=== PATIENT | male | born 1945 | race Caucasian/White ===

== ENCOUNTER 2017-09-28 05:12 | Observation (INO) | payer OTHER ==
[2017-09-28 05:42] LABS: Absolute Lymphocytes (CBC) 0.8 K/uL (0.7-4.9); Absolute Monocytes 0.2 K/uL (0.1-1.3); Absolute Neutrophil 7.2 K/uL (1.8-8.0); Basophils % 0.4 % (0-1.3); Eosinophils % 0.2 % (0-4.4); Hematocrit 47.4 % (39.6-49.0); MCH 30.5 pg (27.0-35.0); MCV 91.4 fL (80-100); MPV 9.4 fL (7.6-11.3); Monocytes % 2.4 % (3.3-12.3); RBC Red Blood Cell Count 5.19 M/uL (4.33-5.43)
[2017-09-28 05:55] LABS: Potassium 3.7 mEq/L (3.6-5.0); Protime INR 0.96
[2017-09-28 06:01] LABS: Albumin 4.5 g/dL (3.2-5.5); Bilirubin Direct 0.2 mg/dL (0-0.2); Magnesium 1.7 mg/dL (1.8-2.5); Protein, Total 8.3 g/dL (6.0-8.3)
[2017-09-28 06:04] LABS: CKMB Creatine Kinase MB 1.4 ng/ml (0.3-4.0)
[2017-09-28] MEDS ORDERED: PROMETHAZINE 25 MG/ML VIAL ONE (06:19)
--- NOTE | 2017-09-28 07:06 | ER ---
Nurse's Notes [facility] Name: Nghia Montague Age: 72 yrs Sex: Male : 1945 Arrival Date: 09/28/2017 Time: 05:13 Bed 7 Private MD: Diagnosis: Chest pain, unspecified Presentation: 09/28 05:13 Presenting complaint: EMS states: HE CALLED US FOR SHORTNESS OF BREATH AFTER HE GOT bp INTO IT WITH HIS FAMILY. Transition of care: patient was not received from another setting of care. Onset of symptoms is unknown. Risk Assessment: Do you want to hurt yourself or someone else? Patient reports no desire to harm self or others. Initial Sepsis Screen: Does the patient meet any 2 criteria? No. Patient's initial sepsis screen is negative. Does the patient have a suspected source of infection? No. Patient's initial sepsis screen is negative. Care prior to arrival: Oxygen administered. via nasal cannula. 05:13 Method Of Arrival: EMS: [facility] bp 05:13 Acuity: TEZ 3 bp 05:17 Note PT AGGRESSIVE WITH EMS IN ROUTE, REFUSING PIV, TEMPERATURE AND OTHER INTERVENTIONS.bp Triage Assessment: 05:15 General: Appears in no apparent distress. comfortable, Behavior is uncooperative. Pain: bp Denies pain. Respiratory: Reports shortness of breath Onset: The symptoms/episode began/occurred at an unknown time. the patient has mild shortness of breath. Historical: - Allergies: 05:15 No Known Allergies; bp - Home Meds: 05:15 None [Active]; bp - PMHx: 05:15 Myocardial infarction; bp - Immunization history:: Adult Immunizations up to date. - Social history:: Smoking status: Patient uses tobacco products, unknown amount. - Ebola Screening: : Patient negative for fever greater than or equal to 101.5 degrees Fahrenheit, and additional compatible Ebola Virus Disease symptoms Patient denies exposure to infectious person Patient denies travel to an Ebola-affected area in the 21 days before illness onset No symptoms or risks identified at this time. Screenin:18 Abuse screen: Denies threats or abuse. Denies injuries from another. Nutritional bp screening: No deficits noted. Tuberculosis screening: No symptoms or risk factors identified. Fall Risk None identified. Assessment: 05:45 Reassessment: received patient from EMS. restless and constantly complaining of cold. rv temp is 98.7. awake and conscious.. General: Appears distressed, uncomfortable, slender, Behavior is cooperative, fussy, restless. Pain: Denies pain. Neuro: Level of Consciousness is awake, alert, obeys commands, Oriented to person, place, time, situation. Cardiovascular: Capillary refill < 3 seconds. Cardiovascular: Rhythm is regular. Respiratory: Airway is patent Respiratory effort is even, Breath sounds are clear. GI: No signs and/or symptoms were reported involving the gastrointestinal system. : No signs and/or symptoms were reported regarding the genitourinary system. EENT: No signs and/or symptoms were reported regarding the EENT system. Derm: Skin is intact. Musculoskeletal: Reports. 05:54 Reassessment: one of the hearing aids feel off and gave it to the patient's son rv (Parminder) together with the patient's [place] ID.. 06:22 Reassessment: patient vomited with bile look-like content. . rv 07:30 Reassessment: Patient appears in no apparent distress at this time. Patient and/or ph family updated on plan of care and expected duration. Pain level reassessed. Patient is alert, oriented x 3, equal unlabored respirations, skin warm/dry/pink. Pt resting quietly awaiting room assignment. 09:00 Reassessment: Patient appears in no apparent distress at this time. Patient and/or ph family updated on plan of care and expected duration. Pain level reassessed. Patient is alert, oriented x 3, equal unlabored respirations, skin warm/dry/pink. Pt taken to restroom via wheelchair, urine sample obtained. 10:13 Reassessment: Patient appears in no apparent distress at this time. Patient and/or ph family updated on plan of care and expected duration. Pain level reassessed. Patient is alert, oriented x 3, equal unlabored respirations, skin warm/dry/pink. Attempted to call report, receiving nurse unavailable, told that she will call back. Vital Signs: 05:15 BP 176 / 81; Resp 20; Temp 97.8; Weight 77.11 kg; bp 06:12 BP 161 / 78; Pulse 69; Resp 19; Pulse Ox 100% on 2 lpm NC; rv 06:27 BP 150 / 72; Pulse 63; Resp 10; Pulse Ox 100% on 2 lpm NC; rv 07:30 BP 148 / 58; Pulse 67; Resp 14; Pulse Ox 99% on 2 lpm NC; hb 08:15 BP 132 / 60; Pulse 69; Resp 17; Pulse Ox 99% on R/A; hb 09:00 BP 144 / 63; Pulse 69; Resp 18; Pulse Ox 99% on R/A; hb 10:00 BP 158 / 62; Pulse 68; Resp 18; Pulse Ox 99% on R/A; hb ED Course: 05:13 Patient arrived in ED. bp 05:15 Triage completed. bp 05:17 Vernon Ruiz MD is Attending Physician. tw4 05:17 Arm band placed on. bp 05:18 Patient has correct armband on for positive identification. Bed in low position. Call bp light in reach. Side rails up X2. 05:42 X-ray completed. Portable x-ray completed in exam room. Patient tolerated procedure mh1 well. 05:43 XRAY Chest (1 view) In Process Unspecified. EDMS 05:49 Inserted saline lock: 20 gauge in right antecubital area, using aseptic technique. rv 07:06 Greer Duarte MD is Hospitalizing Provider. tw4 08:05 Urine collected: clean catch specimen, clear. 3 Administered Medications: 06:21 Drug: Phenergan 6.25 mg Route: IVP; Site: right antecubital; rv 06:57 Follow up: Response: No adverse reaction; Nausea is decreased rv Point of Care Testing: Blood Glucose: 05:47 Blood Glucose: 169 mg/dL; rv Ranges: Outcome: 07:06 Decision to Hospitalize by Provider. tw4 11:15 Patient left the ED. hb Signatures: Dispatcher [employer] EDMS Kimmy Lindsey 1 Gricelda James RN RN Viji Benitez RN RN Deisy Reddy 3 Daren Sy RN RN bp Vernon Ruiz MD MD tw4 Joni Ricci RN RN rv
--- NOTE | 2017-09-28 07:06 | EDPHYS ---
Physician Documentation [facility] Name: Nghia Montague Age: 72 yrs Sex: Male : 1945 Arrival Date: 09/28/2017 Time: 05:13 Bed 7 Private MD: ED Physician Vernon Ruiz HPI: 09/28 07:02 This 72 yrs old Male presents to ER via EMS with complaints of Shortness Of tw4 Breath. 07:02 The patient has shortness of breath at rest. Onset: The symptoms/episode began/occurred tw4 today. Duration: The symptoms are continuous, and are unchanged since they started. The patient's shortness of breath has no apparent modifying factors. Associated signs and symptoms: The patient has no apparent associated signs or symptoms. Severity of symptoms: At their worst the symptoms were mild in the emergency department the symptoms are unchanged. The patient has not experienced similar symptoms in the past. Historical: - Allergies: 05:15 No Known Allergies; bp - Home Meds: 05:15 None [Active]; bp - PMHx: 05:15 Myocardial infarction; bp - Immunization history:: Adult Immunizations up to date. - Social history:: Smoking status: Patient uses tobacco products, unknown amount. - Ebola Screening: : Patient negative for fever greater than or equal to 101.5 degrees Fahrenheit, and additional compatible Ebola Virus Disease symptoms Patient denies exposure to infectious person Patient denies travel to an Ebola-affected area in the 21 days before illness onset No symptoms or risks identified at this time. ROS: 07:02 Constitutional: Negative for fever, chills, and weight loss. tw4 07:02 Abdomen/GI: Negative for abdominal pain, nausea, vomiting, diarrhea, and constipation, MS/Extremity: Negative for injury and deformity, Skin: Negative for injury, rash, and discoloration, Neuro: Negative for headache, weakness, numbness, tingling, and seizure. 07:02 Cardiovascular: Positive for chest pain, Negative for edema, orthopnea, palpitations. 07:02 Respiratory: Positive for shortness of breath, Negative for cough, dyspnea on exertion, hemoptysis, orthopnea, pleurisy. Exam: 07:02 Constitutional: This is a well developed, well nourished patient who is awake, alert, tw4 and in no acute distress. Head/Face: Normocephalic, atraumatic. Cardiovascular: Regular rate and rhythm with a normal S1 and S2. No gallops, murmurs, or rubs. Normal PMI, no JVD. No pulse deficits. Respiratory: Lungs have equal breath sounds bilaterally, clear to auscultation and percussion. No rales, rhonchi or wheezes noted. No increased work of breathing, no retractions or nasal flaring. Abdomen/GI: Soft, non-tender, with normal bowel sounds. No distension or tympany. No guarding or rebound. No evidence of tenderness throughout. Back: No spinal tenderness. No costovertebral tenderness. Full range of motion. MS/ Extremity: Pulses equal, no cyanosis. Neurovascular intact. Full, normal range of motion. Neuro: Awake and alert, GCS 15, oriented to person, place, time, and situation. Cranial nerves II-XII grossly intact. Motor strength 5/5 in all extremities. Sensory grossly intact. Cerebellar exam normal. Normal gait. Vital Signs: 05:15 BP 176 / 81; Resp 20; Temp 97.8; Weight 77.11 kg; bp 06:12 BP 161 / 78; Pulse 69; Resp 19; Pulse Ox 100% on 2 lpm NC; rv 06:27 BP 150 / 72; Pulse 63; Resp 10; Pulse Ox 100% on 2 lpm NC; rv 07:30 BP 148 / 58; Pulse 67; Resp 14; Pulse Ox 99% on 2 lpm NC; hb 08:15 BP 132 / 60; Pulse 69; Resp 17; Pulse Ox 99% on R/A; hb 09:00 BP 144 / 63; Pulse 69; Resp 18; Pulse Ox 99% on R/A; hb 10:00 BP 158 / 62; Pulse 68; Resp 18; Pulse Ox 99% on R/A; hb MDM: 05:17 Patient medically screened. tw4 07:02 Data reviewed: vital signs, nurses notes. Data interpreted: security monitor: rhythm is tw4 normal sinus rhythm, Pulse oximetry: Interpretation: normal. Test interpretation: by ED physician or midlevel provider: ECG. Counseling: I had a detailed discussion with the patient and/or guardian regarding: the historical points, exam findings, and any diagnostic results supporting the discharge/admit diagnosis, lab results, radiology results. Physician consultation:. Admission orders: after a detailed discussion of the patient's condition and case, the admit orders are written by me. 07:04 Differential diagnosis: CHF exacerbation, Chronic Obstructive Pulmonary Disease tw4 pulmonary edema, Pulmonary Embolism reactive airway disease. Physician consultation: Greer Duarte MD was contacted at 07:03, regarding patient's condition, need to come to ED to see patient, and will see patient in inpatient room. 09/28 05:25 Order name: Basic Metabolic Panel; Complete Time: 06:16 tw4 09/28 06:35 Interpretation: GLUC 179; GFR 73. tw4 09/28 05:25 Order name: BNP; Complete Time: 06:16 tw4 09/28 05:25 Order name: CBC with Diff tw4 09/28 06:36 Interpretation: Normal except: MCV 91.4; MN% 2.4; AXEL% 87.0; LYM% 10.0. tw4 09/28 05:25 Order name: Ckmb; Complete Time: 06:16 4 09/28 05:25 Order name: CPK; Complete Time: 06:16 tw4 09/28 05:25 Order name: LFT's; Complete Time: 06:16 tw4 09/28 06:36 Interpretation: Normal except: GLOB 3.8. tw4 09/28 05:25 Order name: Magnesium; Complete Time: 06:16 tw4 09/28 05:25 Order name: PT-INR; Complete Time: 06:16 4 09/28 05:25 Order name: Ptt, Activated; Complete Time: 06:16 4 09/28 05:25 Order name: Troponin (emerg Dept Use Only); Complete Time: 06:16 tw4 09/28 06:36 Interpretation: Abnormal: TROPED 0.04. tw4 09/28 05:44 Order name: CBC Smear Scan EDAK 09/28 08:18 Order name: Urine Dipstick--Ancillary (enter results) em1 09/28 08:41 Order name: Glucose, Ancillary Testing EDAK 09/28 08:48 Order name: Urine Dipstick-Ancillary EDAK 09/28 05:25 Order name: XRAY Chest (1 view) tw4 09/28 05:25 Order name: EKG; Complete Time: 05:26 tw4 09/28 05:25 Order name: Cardiac monitoring; Complete Time: 05:33 tw4 09/28 05:25 Order name: EKG - Nurse/Tech; Complete Time: 05:33 4 09/28 05:25 Order name: IV Saline Lock; Complete Time: 05:33 4 09/28 05:25 Order name: Labs collected and sent; Complete Time: 05:33 4 09/28 05:25 Order name: O2 Per Protocol; Complete Time: 05:33 4 09/28 05:25 Order name: O2 Sat Monitoring; Complete Time: 05:34 4 09/28 05:25 Order name: Urine Dipstick-Ancillary (obtain specimen); Complete Time: 08:15 tw4 Administered Medications: 06:21 Drug: Phenergan 6.25 mg Route: IVP; Site: right antecubital; rv 06:57 Follow up: Response: No adverse reaction; Nausea is decreased rv Point of Care Testing: Blood Glucose: 05:47 Blood Glucose: 169 mg/dL; rv Ranges: Critical Glucose Levels:Adult <50 mg/dl or >400 mg/dl <40 mg/dl or >180 mg/dl Disposition: 09/28/17 07:06 Hospitalization ordered by Greer Duarte for Observation. Preliminary diagnosis is Chest pain, unspecified. - Bed requested for Telemetry/MedSurg (observation). - Status is Observation. hb - Condition is Stable. - Problem is new. - Symptoms have improved. UTI on Admission? No Signatures: Dispatcher [employer] EDAnali Byrnes RN RN dw Daphney Padilla, LENS INSERTER-C LENS INSERTER-Csnw Viji Benitez RN RN Daren Sy RN Vernon Romo MD MD tw4 Joni Ricci RN RN rv Corrections: (The following items were deleted from the chart) 09:08 07:06 Hospitalization Ordered by Greer Duarte MD for Observation. Preliminary dw diagnosis is Chest pain, unspecified. Bed requested for Telemetry/MedSurg (observation). Status is Observation. Condition is Stable. Problem is new. Symptoms have improved. UTI on Admission? No. tw4 11:15 09:08 09/28/2017 07:06 Hospitalization Ordered by Greer Duarte MD for Observation. hb Preliminary diagnosis is Chest pain, unspecified. Bed requested for Telemetry/MedSurg (observation). Status is Observation. Condition is Stable. Problem is new. Symptoms have improved. UTI on Admission? No. dw
[2017-09-28 08:05] LABS: Blood Morphology Comment NOT SEEN (NOT SEEN); Platelet Estimate ADEQ; Urine White Blood Cell Casts OK
[2017-09-28 08:48] LABS: Urine Blood TRACE (NEG); Urine Glucose 1+ (NEG); Urine Protein 1+ (NEG); Urine Specific Gravity 1.015 (1.005-1.030); Urine pH 8.5 (5.0-7.0)
--- NOTE | 2017-09-28 10:28 | RAD REPORT ---
EXAM DESCRIPTION: Paulo Single View09/28/2017 5:44 am CLINICAL HISTORY: Cough COMPARISON: 2012 FINDINGS: The lungs appear clear of acute infiltrate. The heart is normal size IMPRESSION: No acute abnormalities displayed
[2017-09-28] MEDS ORDERED: ONDANSETRON 4 MG/2 ML VIAL IV PRN (11:30)
[2017-09-28] MEDS ORDERED: NA CHLORIDE 0.9% 500 ML IV ONE (11:36)
[2017-09-28] MEDS ORDERED: NA CHLORIDE 0.9% 500 ML ONE (11:39)
[2017-09-28] MEDS ORDERED: NA CHLORIDE 0.9% 1,000 ML IV SCH ×2 (12:00)
[2017-09-28 12:17] VITALS: BMI 28.1
[2017-09-28] MEDS: NA CHLORIDE 0.9% 1,000 ML IV SCH ×2 (12:29→22:00)
[2017-09-28] MEDS: METOPROLOL XL 25 MG TAB PO SCH (12:30)
[2017-09-28] MEDS ORDERED: POTASSIUM 25 MEQ EFFERV TAB PO ONE (13:00)
[2017-09-28] MEDS ORDERED: MAGNESIUM SULFATE 1 gm IVPB 1 GM/100 ML BAG IV ONE (13:00)
[2017-09-28] MEDS ORDERED: POTASSIUM PHOS IN 0.9 % NACL 15 MMOL/250 ML BAG IV ONE (13:45)
[2017-09-28] MEDS ORDERED: IPRATROPIUM BROM 0.5MG/2.5ML NEB SCH (14:00)
[2017-09-28] MEDS ORDERED: ALBUTEROL 2.5 MG/3 ML NEB SOL NEB SCH (14:00)
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
--- NOTE | 2017-09-28 15:50 | CON ---
History Of Present Illness: Mr. Montague for 3 days has been not eating or drinking, when he tried to eat or drink he throws up. He has diffuse body aches and pains. He reports feeling cold, shivering and having some sweating spells as well but does not complain of a cough or chest pain or dysuria. Sonu peterson seems to just feel bad in general all over, reluctant to be very specific about anything. He prese ntly takes no medications. He was a patient in the [facility] and he had a myocardial infarc tion and a stent in 1998. He was in our hospital in 2012 at which time, an echocardiogram and nuclea r stress test and CT angio of the chest were done. Those things all looked fine. He has not had any contact with me since 2012. He has not had any contact with his [place] doctors in more than a year. He denies tobacco use now, although he has an odor of tobacco smoke about him. Denies alcohol use at a ll for the last 2 years. Denies illegal drugs. Physical Examination: General: He is very ill-appearing. He appears disheveled. General hygiene: Oral hygiene are all very poor. Lungs: Did not reveal crackles or wheeze. Heart exam: Does not reveal any abnormality. Abdomen: Soft. Extremities: Reveal no edema. Distal pulses are palpable. Laboratory Data: His electrocardiogram is not available from today. We will have to see if we can g et it put into the computer system, so it could be interpreted, but at the present time, it is not av ailable. The troponin level of 0.04. Magnesium level was low. Blood sugars are high 179 to 169, cr eatinine 1, BUN is 6. He has a normal white blood cell count, normal hemoglobin, hematocrit, platele t count. There is a mild left shift with 87% neutrophils. There has been no screening for influenza . The urine analysis shows some abnormalities but not typically what we would find in urine infectio n. He has elevated ketones, a trace amount of blood and urine protein. Impression: The patient has an infection of some kind, it is not obvious looking in what the source is. It does not seem to be urinary or lungs. I think he does need hydration and needs to be kept n. p.o. and investigate the anorexia. We will get serial enzymes, but the one of 0.04 is not very impre ssive and would not necessarily prompt us to do a lot of cardiac testing. We will see what develops before we launch any further cardiac testing. This does not seem to be a case of non ST elevation OR or unstable angina. SCOTTIE/GLEN Voice ID: [id number] Report ID: [id number]
--- NOTE | 2017-09-28 18:56 | RAD REPORT ---
EXAM DESCRIPTION: CT - Abdomen Pelvis Wo Contrast - 09/28/2017 6:41 pm CLINICAL HISTORY: Abdominal pain with nausea and vomiting COMPARISON: 2012 TECHNIQUE: Computed axial tomography of the abdomen and pelvis was obtained. IV contrast was not giv en. Oral contrast was administered. All CT scans are performed using dose optimization technique as appropriate and may include automated exposure control or mA/KV adjustment according to patient size. FINDINGS: The evaluation of solid organs, vessels is limited secondary to the lack of contrast admi nistration. The liver, pancreas, adrenals and right kidney grossly normal. A 41 millimeter cystic splenic mass is without significant change. Small left renal cysts are suspect ed. Small calcification within a calyceal diverticulum is suspected. The appendix is normal. There is no evidence of diverticulitis. The prostate gland ismoderately enlarged. Small inguinal hernias contain fat A small hiatal hernia is present. 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 Is without obvious change from the prior exam although c omparison is limited as contrast was not administered. IMPRESSION: No acute abnormality is displayed.
[2017-09-28] MEDS ORDERED: ATORVASTATIN 20 MG TAB PO SCH (21:00)
[2017-09-29] MEDS: NA CHLORIDE 0.9% 1,000 ML IV SCH ×2 (00:42→10:20)
[2017-09-29 04:24] VITALS: O2SAT 97
[2017-09-29 04:43] LABS: Absolute Lymphocytes (CBC) 2.1 K/uL (0.7-4.9); Absolute Neutrophil 8.1 K/uL (1.8-8.0); Basophils % 0.5 % (0-1.3); Eosinophils % 0.6 % (0-4.4); Hematocrit 41.4 % (39.6-49.0); Lymphocytes % 18.3 % (15.3-44.8); MCH 30.2 pg (27.0-35.0); MCV 92.4 fL (80-100); MPV 9.2 fL (7.6-11.3); Monocytes % 8.5 % (3.3-12.3); RBC Red Blood Cell Count 4.49 M/uL (4.33-5.43)
[2017-09-29 05:31] LABS: Magnesium 1.9 mg/dL (1.8-2.5); Phosphorus 2.6 mg/dL (2.5-4.3); Potassium 3.7 mEq/L (3.6-5.0)
[2017-09-29] MEDS: METOPROLOL XL 25 MG TAB PO SCH (06:19)
[2017-09-29] MEDS ORDERED: POTASSIUM CL SA 10 MEQ TAB PO ONE (07:00)
--- NOTE | 2017-09-29 07:39 | EKG ---
Test Date: 2017-09-28 Test Time: 05:40:57 Hotel Maid: [place] MEASUREMENT RESULTS: Intervals: Rate: 70 WI: 170 QRSD: 76 QT: 402 QTc: 434 [place]: P: WI: 170 QRS: 163 T: 137 INTERPRETIVE STATEMENTS: Normal sinus rhythm Right axis deviation Low voltage QRS Septal infarct, age undetermined Abnormal ECG Compared to ECG 06/21/2012 16:20:18 Right-axis deviation now present Myocardial infarct finding still present Electronically Signed On 09-29-17 07:38:23 CDT by Jose Dunaway
[2017-09-29 08:32] VITALS: BP 141/67; TEMP 98.1
[2017-09-29] MEDS ORDERED: ASPIRIN EC 81 MG TAB PO SCH (09:00)
[2017-09-29] MEDS ORDERED: CALCIUM GLUC 10% INJ 4.65 MEQ in NA CHLORIDE 0.9% 100 ML IV ONE (11:02)
--- NOTE | 2017-09-29 12:43 | ECHO ---
HEIGHT: 5 ft 7 in WEIGHT: 180 lb 0 oz DATE OF STUDY: 09/29/[address]: Greer Duarte MD 2-DIMENSIONAL: YES M.MODE: YES DOPPLER: YES COLOR FLOW: YES TDS: NO PORTABLE: NO DEFINITY: NO BUBBLE STUDY: NO DIAGNOSIS: CONGESTIVE HEART FAILURE CARDIAC HISTORY: CATHERIZATION: NO SURGERY: NO PROSTHETIC VALVE: NO PACEMAKER: NO MEASUREMENTS (cm) DIASTOLIC (NORMALS) SYSTOLIC (NORMALS) IVSd 1.1 (0.6-1.2) LA Diam 4.0 (1.9-4.0) LVEF 65% LVIDd 4.3 (3.5-5.7) LVIDs 2.8 (2.0-3.5) %FS 35% LVPWd 1.0 (0.6-1.2) Ao Diam 2.7 (2.0-3.7) 2 DIMENSIONAL ASSESSMENT: RIGHT ATRIUM: NORMAL LEFT ATRIUM: NORMAL RIGHT VENTRICLE: NORMAL LEFT VENTRICLE: NORMAL TRICUSPID VALVE: NORMAL MITRAL VALVE: NORMAL PULMONIC VALVE: NORMAL AORTIC VALVE: NORMAL PERICARDIAL EFFUSION: NONE AORTIC ROOT: NORMAL LEFT VENTRICULAR WALL MOTION: MILD APICAL HYPOKINESIS. NO CHANGES SINCE 2012. DOPPLER/COLOR FLOW: MILD MITRAL AND TRICUSPID REGURGITATION. NORMAL RIGHT VENTRICULAR SYSTOLIC PRESSURE. COMMENTS: NORMAL LEFT VENTRICULAR EJECTION FRACTION WITH WALL MOTION ABNORMALITY, NO CHANGES SINCE 2012. MILD MITRAL AND TRICUSPID REGURGITATION. TECHNOLOGIST: Lisbet IZQUIERDO
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
== END 2017-09-29 15:18 | disposition home or self-care (01) ==
LOC: ER 05:12 → ERHOLD 07:07 → 4TH 11:05
PROVIDERS: ADMIT Family Medicine; ATTEND Family Medicine
DX: E86.0 Dehydration (principal); R11.2 Nausea with vomiting, unspecified; I10 Essential (primary) hypertension; E78.5 Hyperlipidemia, unspecified; K21.9 Gastro-esophageal reflux disease without esophagitis; I25.2 Old myocardial infarction; Z95.5 Presence of coronary angioplasty implant and graft; Z87.891 Personal history of nicotine dependence; Z91.14 Patient's other noncompliance with medication regimen
CPT/HCPCS: 36415; 71045; 74176; 80048 ×2; 80076; 81003; 82550; 82553; 82962; 83735 ×2; 83880; 84100 ×2; 84484 ×3; 85025 ×2; 85610; 85730; 87070; 87081; 87804 ×2; 93005; 93306; 96374; 99284; G0378 ×2; J0610; J2405; J2550; J3475; J7030 ×3

== ENCOUNTER 2021-04-03 21:28 | Inpatient (IN) | payer OTHER ==
[2021-04-03 22:24] LABS: Absolute Lymphocytes (CBC) 1.3 K/uL (0.7-4.9); Hematocrit 44.4 % (39.6-49.0); Lymphocytes % 20.6 % (15.3-44.8); MPV 9.2 fL (7.6-11.3); RBC Red Blood Cell Count 4.81 M/uL (4.33-5.43)
[2021-04-03 22:41] LABS: Albumin 3.6 g/dL (3.4-5.0); Bilirubin Direct 0.2 mg/dL (0-0.2); Bilirubin Total 0.6 mg/dL (0.2-1.0); Magnesium 1.9 mg/dL (1.8-2.4); Potassium 3.9 mmol/L (3.5-5.1); Protein, Total 7.7 g/dL (6.4-8.2); Troponin (Emerg Dept Use Only) 0.2 ng/mL (0.0-0.045)
[2021-04-03] MEDS ORDERED: NITROGLYCERIN 1 GM PKT TD ONE (22:49)
[2021-04-03] MEDS ORDERED: ONDANSETRON 4 MG/2 ML VIAL ONE (22:49)
[2021-04-03 22:58] LABS: Protime INR 0.97
[2021-04-03] MEDS ORDERED: ENOXAPARIN 80 MG/0.8 ML SQ ONE (23:01)
[2021-04-03] MEDS ORDERED: ASPIRIN 81 MG CHEWABLE TABLET ONE (23:01)
--- NOTE | 2021-04-03 23:02 | ER ---
Nurse's Notes [facility] Name: Nghia Montague Age: 76 yrs Sex: Male : 1945 Arrival Date: 04/03/2021 Time: 21:29 Bed 16 Private MD: Diagnosis: Subsequent non-ST elevation (NSTEMI) myocardial infarction Presentation: 04/03 21:35 Chief complaint: Patient states: chest pain. Coronavirus screen: Vaccine status: da3 Patient reports receiving the 2nd dose of the covid vaccine. Ebola Screen: No symptoms or risks identified at this time. Risk Assessment: Do you want to hurt yourself or someone else? Patient reports no desire to harm self or others. 21:35 Method Of Arrival: Ambulatory da3 21:35 Acuity: TEZ 3 da3 Triage Assessment: 21:37 General: Appears distressed, uncomfortable, Behavior is appropriate for age, agitated. da3 Historical: - Allergies: 23:36 No Known Allergies; ld1 - PMHx: 23:36 Myocardial infarction; ld1 - PSHx: 23:36 None; ld1 - Immunization history:: Client reports receiving the 2nd dose of the Covid vaccine. - Social history:: Smoking status: Patient denies any tobacco usage or history of. Patient/guardian denies using alcohol. Assessment: 22:30 Reassessment: See triage assessment. Pain: Complains of pain in chest Pain does not ld1 radiate. Pain currently is 6 out of 10 on a pain scale. Quality of pain is described as throbbing, Pain began suddenly, Is continuous. 22:30 Neuro: Level of Consciousness is awake, alert, obeys commands, Oriented to person, ld1 place, time, situation. Cardiovascular: Capillary refill < 3 seconds Patient's skin is warm and dry. 04/04 07:30 General: Appears in no apparent distress. Behavior is calm, cooperative, appropriate jd3 for age. Pain: Denies pain. Neuro: Level of Consciousness is awake, alert, obeys commands, Oriented to person, place, time, situation. Cardiovascular: Capillary refill < 3 seconds Patient's skin is warm and dry. Rhythm is regular. Respiratory: Airway is patent Respiratory effort is even, unlabored, Respiratory pattern is regular, symmetrical. 08:33 Reassessment: Patient appears in no apparent distress at this time. No changes from jd3 previously documented assessment. Patient and/or family updated on plan of care and expected duration. Pain level reassessed. Patient is alert, oriented x 3, equal unlabored respirations, skin warm/dry/pink. Vital Signs: 12 21:35 BP 187 / 91; Pulse 73; Resp 22; Temp 97.4; Pulse Ox 100% on R/A; Weight 79.38 kg; da3 Height 5 ft. 7 in. (170.18 cm); 23:36 BP 130 / 56; Pulse 66; Resp 13; Pulse Ox 96% on R/A; ld1 21:35 Body Mass Index 27.41 (79.38 kg, 170.18 cm) da3 ED Course: 21:29 Patient arrived in ED. ag3 21:37 Triage completed. da3 22:03 Gabriel Ramesh MD is Attending Physician. mh7 22:17 Inserted saline lock: 20 gauge in left antecubital area, using aseptic technique. Blood ds4 collected. 22:19 XRAY Chest (1 view) In Process Unspecified. EDMS 22:58 COVID-19 SARS RT PCR (Document "Date of Onset" if Symptomatic) Sent. ld1 22:59 Cameron Goyal, SALTY is Primary Nurse. as6 23:00 Radames Ring MD is Hospitalizing Provider. mh7 23:11 COVID-19 SARS RT PCR (Document "Date of Onset" if Symptomatic) Sent. ld1 Administered Medications: 22:55 Drug: Zofran (Ondansetron) 4 mg Route: IVP; Site: left antecubital; ld1 22:58 Drug: Nitro-Bid (nitroglycerin) Ointment 2 % 0.5 inches Route: Transdermal; Site: ld1 anterior chest wall; 23:11 Drug: Aspirin Chewable Tablet 324 mg Route: PO; ld1 23:11 Drug: Lovenox (enoxaparin) 1 mg/kg Route: Sub-Q; Site: abdomen; ld1 Outcome: 23:01 Decision to Hospitalize by Provider. 7 04/04 08:31 Admitted to Tele accompanied by tech, via wheelchair, room 230, with chart, Report jd3 called to patients RN Condition: stable Instructed on the need for admit. 08:33 Patient left the ED. jd3 Signatures: Dispatcher [employer] EDMS Leonel Kaye ds4 Kyle Ho RN RN jd3 Cora Mares Maurice, MD MD mh7 Sylvia De Santiago RN RN ld1 Joo Solares RN RN da3 Cameron Goyal RN RN as6 Corrections: (The following items were deleted from the chart) 04/03 23:36 23:11 Reassessment: leonie hadley
--- NOTE | 2021-04-03 23:02 | EDPHYS ---
Physician Documentation [facility] Name: Nghia Montague Age: 76 yrs Sex: Male : 1945 Arrival Date: 04/03/2021 Time: 21:29 Bed 16 Private MD: ED Physician Gabriel Ramesh HPI: 04/03 22:31 This 76 yrs old Male presents to ER via Ambulatory with complaints of Chest Pain. [facility] 22:31 The patient or guardian reports chest pain that is located primarily in the anterior mh7 chest wall, left. Onset: last night. The pain does not radiate. Associated signs and symptoms: Pertinent positives: nausea, shortness of breath, Pertinent negatives: abdominal pain, cough, diaphoresis, dizziness, headache, lower extremity pain, lower extremity swelling, lightheadedness, near syncope, palpitations, recent travel, syncope, vomiting. The chest pain is described as a heaviness. Duration: The patient or guardian reports multiple episodes, that are intermittent, that wax and wane, with no pattern. Modifying factors: The symptoms are alleviated by NTG, X2. the symptoms are aggravated by nothing. Severity of pain: At its worst the pain was moderate today, in the emergency department the pain has improved moderately. Historical: - Allergies: 23:36 No Known Allergies; ld1 - PMHx: 23:36 Myocardial infarction; ld1 - PSHx: 23:36 None; ld1 - Immunization history:: Client reports receiving the 2nd dose of the Covid vaccine. - Social history:: Smoking status: Patient denies any tobacco usage or history of. Patient/guardian denies using alcohol. ROS: 22:31 Constitutional: Negative for fever, chills, and weight loss, Eyes: Negative for injury, mh7 pain, redness, and discharge, ENT: Negative for injury, pain, and discharge, Neck: Negative for injury, pain, and swelling. 22:31 Back: Negative for injury and pain, : Negative for injury, bleeding, discharge, and swelling, MS/Extremity: Negative for injury and deformity, Skin: Negative for injury, rash, and discoloration, Neuro: Negative for headache, weakness, numbness, tingling, and seizure, Psych: Negative for depression, anxiety, suicide ideation, homicidal ideation, and hallucinations, Allergy/Immunology: Negative for hives, rash, and allergies, Endocrine: Negative for neck swelling, polydipsia, polyuria, polyphagia, and marked weight changes, Hematologic/Lymphatic: Negative for swollen nodes, abnormal bleeding, and unusual bruising. 22:31 Abdomen/GI: Negative for abdominal pain, vomiting, diarrhea, constipation, abdominal cramps, abdominal distension, anorexia, dysphagia, hematemesis, black/tarry stool, rectal pain, rectal bleeding, bowel incontinence, flatulence. Exam: 22:31 Head/Face: Normocephalic, atraumatic. Eyes: Pupils equal round and reactive to light, mh7 extra-ocular motions intact. Lids and lashes normal. Conjunctiva and sclera are non-icteric and not injected. Cornea within normal limits. Periorbital areas with no swelling, redness, or edema. Neck: Trachea midline, no thyromegaly or masses palpated, and no cervical lymphadenopathy. Supple, full range of motion without nuchal rigidity, or vertebral point tenderness. No Meningismus. Chest/axilla: Normal chest wall appearance and motion. Nontender with no deformity. No lesions are appreciated. Cardiovascular: Regular rate and rhythm with a normal S1 and S2. No gallops, murmurs, or rubs. Normal PMI, no JVD. No pulse deficits. Respiratory: Lungs have equal breath sounds bilaterally, clear to auscultation and percussion. No rales, rhonchi or wheezes noted. No increased work of breathing, no retractions or nasal flaring. Abdomen/GI: Soft, non-tender, with normal bowel sounds. No distension or tympany. No guarding or rebound. No evidence of tenderness throughout. Back: No spinal tenderness. No costovertebral tenderness. Full range of motion. Skin: Warm, dry with normal turgor. Normal color with no rashes, no lesions, and no evidence of cellulitis. MS/ Extremity: Pulses equal, no cyanosis. Neurovascular intact. Full, normal range of motion. Neuro: Awake and alert, GCS 15, oriented to person, place, time, and situation. Cranial nerves II-XII grossly intact. Motor strength 5/5 in all extremities. Sensory grossly intact. Cerebellar exam normal. Normal gait. Psych: Awake, alert, with orientation to person, place and time. Behavior, mood, and affect are within normal limits. 22:31 Constitutional: The patient appears in no acute distress, alert, awake, uncomfortable. Vital Signs: 21:35 BP 187 / 91; Pulse 73; Resp 22; Temp 97.4; Pulse Ox 100% on R/A; Weight 79.38 kg; da3 Height 5 ft. 7 in. (170.18 cm); 23:36 BP 130 / 56; Pulse 66; Resp 13; Pulse Ox 96% on R/A; ld1 21:35 Body Mass Index 27.41 (79.38 kg, 170.18 cm) da3 MDM: 22:58 Differential diagnosis: abnormal EKG, acute myocardial infarction, acute pericarditis, mh7 anxiety, coronary artery disease chest wall pain, congestive heart failure costochondritis, gastroesophageal reflux disease (GERD), pericarditis, pneumonia. HEART Score: History: Moderately Suspicious (1), ECG: Non specific repolarization disturbance / LBTB / PM (1), Age: > or = 65 years (2), Risk Factors: 1 or 2 risk factors (1), [Hypercholesterolemia] [Hypertension] Troponin: > or = 3 x Normal Limit (2), Total Score = 7. Data reviewed: vital signs, nurses notes, old medical records, lab test result(s), cardiac enzymes, CBC, electrolytes, EKG, radiologic studies, plain films. 23:00 The patient was given aspirin in the Emergency Department. Data interpreted: Pulse mh7 oximetry: on room air is 100 %. Interpretation: normal. Counseling: I had a detailed discussion with the patient and/or guardian regarding: the historical points, exam findings, and any diagnostic results supporting the discharge/admit diagnosis, the presence of at least one elevated blood pressure reading (>120/80) during this emergency department visit, lab results, radiology results, the need for further work-up and treatment in the hospital. Response to treatment: the patient's symptoms have mildly improved after treatment. 23:01 Patient medically screened. [facility] 04/03 21:57 Order name: Basic Metabolic Panel; Complete Time: 22:46 ds4 04/03 21:57 Order name: CBC with Diff; Complete Time: 22:30 ds4 04/03 21:57 Order name: LFT's; Complete Time: 22:46 ds4 04/03 21:57 Order name: Magnesium; Complete Time: 22:46 ds4 04/03 21:57 Order name: NT PRO-BNP; Complete Time: 22:46 ds4 04/03 21:57 Order name: PT-INR; Complete Time: 01:04 ds4 04/03 21:57 Order name: Troponin (emerg Dept Use Only); Complete Time: 22:46 ds4 04/03 22:30 Order name: COVID-19 SARS RT PCR (Document "Date of Onset" if Symptomatic); Complete bb Time: 01:04 04/04 04:34 Order name: CBC with Automated Diff; Complete Time: 05:20 EDMS 04/04 05:17 Order name: Comprehensive Metabolic Panel; Complete Time: 05:20 EDMS 04/04 05:17 Order name: Troponin I; Complete Time: 05:20 EDMS 04/04 05:17 Order name: Lipid Profile; Complete Time: 05:20 EDMS 04/04 05:17 Order name: T4 Free; Complete Time: 05:20 EDMS 04/04 05:17 Order name: Magnesium; Complete Time: 05:20 EDMS 04/03 21:57 Order name: XRAY Chest (1 view) ds4 04/03 21:57 Order name: EKG; Complete Time: 21:58 ds4 04/03 21:57 Order name: Cardiac monitoring; Complete Time: 22:46 ds4 04/03 21:57 Order name: EKG - Nurse/Tech; Complete Time: 22:28 ds4 04/03 21:57 Order name: IV Saline Lock; Complete Time: 22:28 ds4 04/03 21:57 Order name: Labs collected and sent; Complete Time: 22:28 ds4 04/03 21:57 Order name: O2 Per Protocol; Complete Time: 22:28 ds4 04/03 21:57 Order name: O2 Sat Monitoring; Complete Time: 22:28 ds4 04/04 05:17 Order name: Thyroid Stimulating Hormone; Complete Time: 05:20 EDMS Administered Medications: 22:55 Drug: Zofran (Ondansetron) 4 mg Route: IVP; Site: left antecubital; ld1 22:58 Drug: Nitro-Bid (nitroglycerin) Ointment 2 % 0.5 inches Route: Transdermal; Site: ld1 anterior chest wall; 23:11 Drug: Aspirin Chewable Tablet 324 mg Route: PO; ld1 23:11 Drug: Lovenox (enoxaparin) 1 mg/kg Route: Sub-Q; Site: abdomen; ld1 Disposition Summary: 04/03/21 23:01 Hospitalization Ordered Hospitalization Status: Inpatient Admission [facility] Provider: Radames Ring [facility] Condition: Stable [facility] Problem: new [facility] Symptoms: have improved [facility] Bed/Room Type: Standard [facility] Location: Telemetry/MedSurg (Inpatient)(04/04/21 05:39) Room Assignment: [facility](04/04/21 05:39) Diagnosis - Subsequent non-ST elevation (NSTEMI) myocardial infarction [facility] Forms: - Medication Reconciliation Form [facility] - SBAR form [facility] Signatures: Dispatcher [employer] EDMS Kimmy Garza RN RN Leonel Kaye ds4 Alejo Cartagena, INKER MACHINE-C INKER MACHINE-Cla1 Gabriel Ramesh MD MD 7 Sylvia De Santiago RN RN ld1 Joo Solares RN RN da3 Corrections: (The following items were deleted from the chart) 23:05 23:01 Telemetry/MedSurg (Inpatient) [facility] 23:05 23:01 [facility] 04/04 05:39 04/03 23:05 [facility] ER HOLD [facility] 04/04 05:39 04/03 23:05 ERHOLD- [facility]
[2021-04-04] MEDS ORDERED: NITROGLYCERIN 0.4 MG/TAB SL PRN (01:00)
[2021-04-04] MEDS ORDERED: MORPHINE 2 MG/ML SYR IV PRN (01:00)
[2021-04-04] MEDS ORDERED: ONDANSETRON 4 MG/2 ML VIAL IV PRN (01:00)
--- NOTE | 2021-04-04 01:03 | P.HP ---
Certification for Inpatient Patient admitted to: Inpatient With expected LOS: >2 Midnights Patient will require the following post-hospital care: None Practitioner: I am a practitioner with admitting privileges, knowledge of patient current condition, hospital course, and medical plan of care. Services: Services provided to patient in accordance with Admission requirements found in Title 42 Section 412.3 of the Code of Federal Regulations <Alejo Cartagena - Last Filed: 04/04/21 01:00> Patient History Date of Service: 04/04/21 Primary Care Provider: LAZARO Reason for admission: NSTEMI History of Present Illness: 76-year-old male with history of hypertension, CAD presents the emergency department for chest pain. Patient reports that his pain began approximately 24 hours ago and described as tight, squeezing and radiating to the left arm. Patient reports this pain feels exactly the same way he did when he had a myocardial infarction approximately 20 years ago with stent placement. Patient has not had another cardiac catheterization since that time. Patient was evaluated here in the emergency department his labs were significant for mildly elevated troponin initial troponin 0.2, EKG without ST segment elevation pain is improved at this time. Other labs unremarkable chest x-ray unremarkable. ED provider wishes to admit for NSTEMI. - Past Medical/Surgical History Diabetic: No -: Heart attack -: Hypertension -: Cardiac stent x 1 1998 - Family History Mother -: Diabetes, Cancer Notes: breast cancer - Social History Smoking Status: Former smoker Alcohol use: No CD- Drugs: No Caffeine use: Yes Place of Residence: Home <Alejo Cartagena - Last Filed: 04/04/21 01:00> Date of Service: 04/04/21 <Radames Ring - Last Filed: 04/04/21 10:30> Allergies No Known Allergies Allergy (Verified 06/22/12 00:18) Home Medications: NK [No Home Meds] 09/28/17 Review of Systems 10-point ROS is otherwise unremarkable Cardiovascular: Chest Pain, As per HPI <Alejo Cartagena - Last Filed: 04/04/21 01:00> Physical Examination - Physical Exam General: Alert, In no apparent distress, Oriented x3 HEENT: Atraumatic, PERRLA, Mucous membr. moist/pink, EOMI, Sclerae nonicteric Neck: Supple, 2+ carotid pulse no bruit, No LAD, Without JVD or thyroid abnormality Respiratory: Clear to auscultation bilaterally, Normal air movement Cardiovascular: Regular rate/rhythm, Normal S1 S2 Gastrointestinal: Normal bowel sounds, No tenderness Musculoskeletal: No tenderness Integumentary: No rashes Neurological: Normal speech, Normal strength at 5/5 x4 extr, Normal tone, Normal affect - Studies Laboratory Data (last 24 hrs) 04/03/21 22:10: PT 11.2, INR 0.97 04/03/21 22:10: WBC 6.30, Hgb 15.0, Hct 44.4, Plt Count 180 04/03/21 22:10: Sodium 138, Potassium 3.9, BUN 8, Creatinine 0.96, Glucose 133 H, Magnesium 1.9, Total Bilirubin 0.6, AST 15, ALT 26, Alkaline Phosphatase 89 <Alejo Cartagena - Last Filed: 04/04/21 01:00> - Studies Laboratory Data (last 24 hrs) 04/03/21 22:10: PT 11.2, INR 0.97 04/03/21 22:10: WBC 6.30, Hgb 15.0, Hct 44.4, Plt Count 180 04/03/21 22:10: Sodium 138, Potassium 3.9, BUN 8, Creatinine 0.96, Glucose 133 H, Magnesium 1.9, Total Bilirubin 0.6, AST 15, ALT 26, Alkaline Phosphatase 89 <Radames Ring - Last Filed: 04/04/21 10:30> Assessment and Plan - Plan Assessment: NSTEMI, chest pain suspect ACShistory of CAD Hypertension Plan: NSTEMI, chest pain suspect ACShistory of CAD: Full dose Lovenox, monitor on telemetry, trend troponins, echocardiogram ordered. Cardiology consult in place. Continue with aspirin, statin, beta-gladys therapy as well as as needed morphine/nitroglycerin. Repeat EKG as necessary. Patient further input from cardiology. Hypertension: Unsure of home medication have provided metoprolol with parameters. Will review home medications when available. DVT PPX: Full dose Lovenox Code status: Full code Discharge Plan: Home Plan to discharge in: 48 Hours - Advance Directives Does patient have a Living Will: No Does patient have a Durable POA for Healthcare: No - Code Status/Comfort Care Code Status Assessed: Yes (Full code) Critical Care: No Time Spent Managing Pts Care (In Minutes): 55 <Alejo Cartagena - Last Filed: 04/04/21 01:00> - Plan patient seen and examined on rounds this morning. Reports the severe chest discomfort has resolved. Troponin increasing Discussed with cardiology, plan for cardiac catheterization tomorrow Okay for heart healthy diet today, n.p.o. at midnight continue lovenox, aspirin, statin, beta gladys telemetry Patient has not been taking his aspirin / medications regularly for quite some time now <Radames Ring - Last Filed: 04/04/21 10:30>
[2021-04-04 04:31] LABS: Absolute Lymphocytes (CBC) 1.7 K/uL (0.7-4.9); Basophils % 1.1 % (0-1.3); Hematocrit 42.7 % (39.6-49.0); Lymphocytes % 22.2 % (15.3-44.8); MPV 9.3 fL (7.6-11.3)
[2021-04-04 05:14] LABS: Albumin 3.3 g/dL (3.4-5.0); Bilirubin Total 0.7 mg/dL (0.2-1.0); Magnesium 2.2 mg/dL (1.8-2.4); Protein, Total 7.2 g/dL (6.4-8.2); Thyroid Stimulating Hormone 3.68 uIU/mL (0.360-3.740)
[2021-04-04 05:17] LABS: Troponin I 2.72 ng/mL (0.0-0.045)
--- NOTE | 2021-04-04 05:26 | RAD REPORT ---
EXAM DESCRIPTION: Paulo Single View04/03/2021 10:19 pm CLINICAL HISTORY: Chest pain COMPARISON: 2017 FINDINGS: The lungs appear clear of acute infiltrate. The heart is borderline enlarged IMPRESSION: No acute abnormalities displayed
[2021-04-04] MEDS: ASPIRIN EC 81 MG TAB PO SCH (10:13)
[2021-04-04] MEDS: ENOXAPARIN 80 MG/0.8 ML SQ SCH ×2 (10:13→21:17)
--- NOTE | 2021-04-04 12:03 | EKG ---
Test Date: 2021-04-03 Test Time: 21:48:32 E Business Manager: HECTOR MEASUREMENT RESULTS: Intervals: Rate: 62 IN: 174 QRSD: 74 QT: 438 QTc: 444 [place]: P: 70 IN: 174 QRS: 28 T: 60 INTERPRETIVE STATEMENTS: Normal sinus rhythm Low voltage QRS Cannot rule out Anteroseptal infarct, age undetermined Abnormal ECG Compared to ECG 09/28/2017 05:40:57 Right-axis deviation no longer present Myocardial infarct finding still present Electronically Signed On 04-04-21 12:02:44 CERTIFIED MEDICAL BILLER by Dany Khan
[2021-04-04 12:47] VITALS: BMI 26.2
[2021-04-04] MEDS: METOPROLOL TAR 25 MG TAB PO SCH (18:12)
[2021-04-04] MEDS: ATORVASTATIN 40 MG TAB PO SCH (21:17)
[2021-04-04 23:10] LABS: Urine Appearance TURBID (Clear); Urine Blood NEGATIVE (Negative); Urine Color YELLOW (Yellow); Urine Glucose NEGATIVE (Negative); Urine Protein NEGATIVE (Negative); Urine Specific Gravity 1.025 (1.005-1.030)
[2021-04-04 23:11] LABS: Urine Microscopic Reflex ORDER UMIC
[2021-04-04 23:25] LABS: Urine Bilirubin NEGATIVE (Negative)
[2021-04-04 23:27] LABS: Urine Bacteria <20 /HPF (NONE SEEN)
[2021-04-05 03:19] LABS: Absolute Lymphocytes (CBC) 1.9 K/uL (0.7-4.9); Basophils % 1.1 % (0-1.3); Hematocrit 44.6 % (39.6-49.0); Lymphocytes % 22.7 % (15.3-44.8); MPV 9.3 fL (7.6-11.3)
[2021-04-05 03:26] LABS: Albumin 3.5 g/dL (3.4-5.0); Bilirubin Total 0.8 mg/dL (0.2-1.0); Magnesium 1.9 mg/dL (1.8-2.4); Potassium 4.2 mmol/L (3.5-5.1); Protein, Total 7.7 g/dL (6.4-8.2)
[2021-04-05] MEDS: ASPIRIN EC 81 MG TAB PO SCH (05:54)
--- NOTE | 2021-04-05 05:54 | P.PN ---
Date of Service: 04/05/21 Subjective: No longer having chest pain. Troponin peaked at 10 Did have a brief, self resolving episode of sharp pain in right flank area well train of bowel movement States he has had similar pains in the past, have been more consistent in the past, last occurred several months ago Thanks it was due to one of his medications, and part of the reason why he stopped taking medications ROS: 10 point ROS as noted above, otherwise negative Physical exam GEN: Alert, oriented, NAD HEENT: Normal conjunctiva, sclera anicteric CV: Regular rate and rhythm, no edema Pulm: Nonlabored respiration on room air ABD: Soft, nontender, nondistended, no CVA tenderness MSK: No joint tenderness, no tenderness with palpation along back / paraspinal muscles Neuro: Normal speech, normal affect Problem List NSTEMI, chest pain suspect ACShistory of CAD Hypertension trop trended upwards echo done yesterday, pending result has been off meds for several months cardiology consulted, cardiac cath planned for today Continue telemetry on lovenox, hold this AM for cath aspirin, statin, beta gladys Patient reports prior allergy to simvastatin, never tried other statins VTE: Lovenox 1mg/kg BID Code: Full Dispo: anticipate dc home in 24-48hrs pending cath results Time Spent Managing Pts Care (In Minutes): 35
[2021-04-05] MEDS: METOPROLOL TAR 25 MG TAB PO SCH ×4 (05:55→20:19)
[2021-04-05] MEDS: ENOXAPARIN 80 MG/0.8 ML SQ SCH ×2 (08:30→20:10)
[2021-04-05] MEDS ORDERED: LIDOCAINE 1% 20 ML MDV ONE (11:29)
[2021-04-05] MEDS ORDERED: HEPA 1000U/500MLS 2,000 UNIT/1,000 ML BAG IV ONE ×2 (11:30→16:02)
[2021-04-05] MEDS ORDERED: NA CHLORIDE 0.9% 500 ML ONE ×2 (12:15→16:07)
[2021-04-05] MEDS ORDERED: MIDAZOLAM HCL 2 MG/2 ML INJ ONE (13:27)
[2021-04-05] MEDS ORDERED: FENTANYL CITR 100 MCG/2 ML ONE ×2 (13:27→15:07)
[2021-04-05] MEDS ORDERED: NITROGLYCERIN 100 MCG/ML SYR (for cath lab use only) IV ONE (13:28)
[2021-04-05] MEDS ORDERED: ATROPINE SULF 1 MG/10 ML SYR IV ONE (13:28)
[2021-04-05] MEDS ORDERED: HEPARIN 5000 UNIT/ML 1 ML VIAL ONE (13:28)
[2021-04-05] MEDS ORDERED: VERAPAMIL HCL 10 MG/4 ML VIAL IV ONE (13:28)
--- NOTE | 2021-04-05 14:20 | ECHO ---
HEIGHT: 5 ft 7 in WEIGHT: 167 lb 4.8 oz DATE OF STUDY: 04/04/[address]: Alejo Cartagena NP 2-DIMENSIONAL: YES M.MODE: YES DOPPLER: YES COLOR FLOW: YES TDS: NO PORTABLE: NO DEFINITY: NO BUBBLE STUDY: NO DIAGNOSIS: NSTEMI CARDIAC HISTORY: CATHERIZATION: SURGERY: PROSTHETIC VALVE: PACEMAKER: MEASUREMENTS (cm) DIASTOLIC (NORMALS) SYSTOLIC (NORMALS) IVSd 1.0 (0.6-1.2) LA Diam 3.5 (1.9-4.0) LVEF 50-55% LVIDd 3.9 (3.5-5.7) LVIDs 2.7 (2.0-3.5) %FS 32% LVPWd 1.0 (0.6-1.2) Ao Diam 3.1 (2.0-3.7) 2 DIMENSIONAL ASSESSMENT: RIGHT ATRIUM: NORMAL LEFT ATRIUM: NORMAL RIGHT VENTRICLE: NORMAL LEFT VENTRICLE: NORMAL TRICUSPID VALVE: NORMAL MITRAL VALVE: MITRAL REGURGITATION PULMONIC VALVE: NORMAL AORTIC VALVE: NORMAL PERICARDIAL EFFUSION: NONE AORTIC ROOT: NORMAL LEFT VENTRICULAR WALL MOTION: MILD ANTERIOR WALL HYPOKINESIS. DOPPLER/COLOR FLOW: MILD MITRAL REGURGITATION. COMMENTS: LOWER NORMAL LEFT VENTRICULAR EJECTION FRACTION 50-55% WITH MILD ANTERIOR WALL HYPOKINESIS. MILD MITRAL REGURGITATION. TECHNOLOGIST: JEREMIAH ROBERSON
[2021-04-05] MEDS ORDERED: REGADENOSON 0.4 MG/5 ML SYR IV ONE (14:27)
[2021-04-05] MEDS ORDERED: TICAGRELOR 90 MG TABLET PO ONE (14:50)
[2021-04-05] MEDS ORDERED: NITROGLYCERIN 0.4 MG/TAB SL ONE (15:52)
--- NOTE | 2021-04-05 17:05 | OP ---
Date of Procedure: 04/05/2021 Surgeon: AMBER FRYE Procedure Performed: 1.Selective coronary angiogram. 2.IVUS of LAD. 3.IVUS of RCA. 4.IFR of LAD. 5.PCI of proximal mid LAD using 3.0 x 28 mm plus 3.5 x 32 mm Synergy drug-eluting stent. 6.PCI of proximal severe RCA stenosis using 3.5 x 24 mm Synergy drug-eluting stent. Indication: Non-ST elevation myocardial infarction. Access: Right radial artery 6-Micronesian closed with TR band. Complications: None. Bleeding: Less than 10 mL. Description Of Procedure: After risks, benefits and alternatives were explained, the patient agreed to proceed and signed informed consent. The patient was brought to the cardiac catheterization labor atory and prepped and draped in usual sterile fashion. We accessed the right radial artery using ped iatric micropuncture kit and placed a 6-Micronesian slender sheath. Then, took a 5-Micronesian [place] 4.[address] in the aortic root, engaged left main and right coronary artery, took standard views and then exc hanged for a 6-Micronesian XB3.5 guide into the aortic root, engaged left main and then took Comet wire in to the LAD after localization and we did IFR, which was positive at 0.88. Then did IVUS and did iden tify the area of the stenosis and then did PCI using a 3.0 x 28 mm Synergy drug-eluting stent plus ov erlapped proximally using 3.5 x 32 mm Synergy drug-eluting stent with excellent results. Then, we ex changed for a 6-Micronesian JR4 guide into the aortic root, engaged the RCA and then the proximal RCA was pre-dilated. I used IVUS to size the vessel and then used a 3.5 x 24 mm Synergy drug-eluting stent _ the catheter and the wire and sheath and placed TR band with good hemostasis. Findings: 1.Left main: Mild 10% to 20% disease. 2.LAD: Proximal stent with 80% ISR per IVUS and then focal lesion of 80% to 90% and then mid 70% di sease, status post PCI as above. 3.LCX: Proximal left circumflex is normal. OM1 has proximal 30% disease. OM2 has proximal 30% dis ease. 4.RCA with proximal 80% stenosis, status post PCI as above. Conclusion: Severe LAD and RCA stenosis, unsure which one is the culprit, status post PCI to both. Plan: Brilinta, aspirin and statin. SR/MODL Voice ID: [id number] Report ID: [id number]
--- NOTE | 2021-04-05 17:32 | OP ---
Date of Procedure: 04/05/2021 Surgeon: AMBER FRYE Procedure Performed: Selective coronary angiogram. Indication: ST-elevation on EKG post PCI that was done today. Access: Right femoral artery 6-[place] Islander closed with 6-[place] Islander Angio-Seal. Complications: None. Bleeding: Less than 5 mL. Description Of Procedure: After risks, benefits, and alternatives were explained, the patient agreed to proceed and signed informed consent. The patient did not leave the cath lab tech yet, so we went ahea d and prepped the groin and accessed the right femoral artery using micropuncture kit under ultrasoun d guidance fluoroscopy and placed a 6-[place] Islander [place] sheath and took a 6-[place] Islander JL4 catheter into th e aortic root, engaged the left main and took standard views and then removed the catheter and sheath removed and placed a 6-[place] Islander Angio-Seal with good hemostasis. Findings: 1.Left main: Large and normal with diffuse 10% to 20% disease. 2.LAD: Widely patent stent without any complications and MICHAELA-3 flow and 0% residual stenosis in it . 3.Left circumflex: OM2 has proximal 70%, which will be staged. Conclusion: Widely patent LAD stent. This second coronary angiogram was done due to chest pain and ST elevation in the anterior leads on the EKG post PCI that was done today. However, this is probabl y a microvasculature problem post PCI on severely diseased LAD that was done today. Plan: Return to the floor on Brilinta, aspirin, high dose statin and we will monitor. SR/MODL Voice ID: [id number] Report ID: [id number]
[2021-04-05] MEDS: ATORVASTATIN 40 MG TAB PO SCH (20:19)
[2021-04-05] MEDS: HYDRALAZINE HCL 20 MG/ML VIAL IV PRN (23:50)
[2021-04-06] MEDS: METOPROLOL TAR 25 MG TAB PO SCH ×2 (04:57→17:58)
[2021-04-06 06:18] LABS: Basophils % 0.3 % (0-1.3); Hematocrit 43.6 % (39.6-49.0); Lymphocytes % 8.5 % (15.3-44.8); MPV 9.2 fL (7.6-11.3); RBC Red Blood Cell Count 4.72 M/uL (4.33-5.43)
[2021-04-06 06:31] LABS: Potassium 3.8 mmol/L (3.5-5.1)
[2021-04-06] MEDS ORDERED: POTASSIUM CL SA 10 MEQ TAB PO ONE (09:00)
[2021-04-06] MEDS: ASPIRIN EC 81 MG TAB PO SCH (10:10)
[2021-04-06] MEDS: ENOXAPARIN 80 MG/0.8 ML SQ SCH (10:10)
[2021-04-06 11:58] VITALS: O2SAT 94
[2021-04-06] MEDS: HYDRALAZINE HCL 20 MG/ML VIAL IV PRN (12:49)
[2021-04-06 13:30] LABS: Potassium 3.6 mmol/L (3.5-5.1)
--- NOTE | 2021-04-06 15:51 | P.DS ---
Admission Date: 04/04/21 Discharge Date: 04/06/21 Primary Care Provider: HI Disposition: ROUTINE DISCHARGE Discharge Condition: GOOD Reason for Admission: NSTEMI Consultations: Cardiology - Dr. Wheat Procedures: CXR (04/03): No acute abnormalities displayed Echo (04/04): EF: 50-55% with mild anterior wall hypokinesis. mild mitral regurgitation Cardiac Cath (04/06): Findings: 1. Left main: Mild 10% to 20% disease. 2. LAD: Proximal stent with 80% ISR per IVUS and then focal lesion of 80% to 90% and then mid 70% disease, status post PCI as above. 3. LCX: Proximal left circumflex is normal. OM1 has proximal 30% disease. OM2 has proximal 30% disease. 4. RCA with proximal 80% stenosis, status post PCI as above. Conclusion: Severe LAD and RCA stenosis, unsure which one is the culprit, status post PCI to both. Problem List NSTEMI, CAD, severe LAD and RCA stenosis s/p PCI x2 Hypertension Brief History of Present Illness: 76-year-old male with history of hypertension, CAD presents the emergency department for chest pain. Patient reports that his pain began approximately 24 hours ago and described as tight, squeezing and radiating to the left arm. Patient reports this pain feels exactly the same way he did when he had a myocardial infarction approximately 20 years ago with stent placement. Patient has not had another cardiac catheterization since that time. Patient was evaluated here in the emergency department his labs were significant for mildly elevated troponin initial troponin 0.2, EKG without ST segment elevation pain is improved at this time. ED provider requests admission for NSTEMI. Hospital Course: Cardiology took patient for cardiac cath which revealed significant CAD as noted above. Patient underwent PCI x2. Patient did well post-operatively. He was noted to have sever hypertension and improved with initiation of lisinopril. Patient was discharged home with aspirin, brilinta, atorvastatin, metoprolol, and lisinopril. Patient requested small prescriptions of brilinta with refill to make more affordable until [facility] Patient does have a h/o intolerance to simvastatin, however did not display any side effects from atorvastatin. Vital Signs/Physical Exam: Temp Pulse Resp BP Pulse Ox 97.5 F 88 16 202/95 H 97 04/06/21 12:00 04/06/21 12:00 04/06/21 12:00 04/06/21 12:00 04/06/21 12:00 General: Alert, In no apparent distress, Oriented x3 HEENT: Sclerae nonicteric Neck: Supple Respiratory: Clear to auscultation bilaterally, Normal air movement Cardiovascular: No edema, Regular rate/rhythm Gastrointestinal: Soft and benign, Non-distended, No tenderness Musculoskeletal: No erythema, No tenderness Integumentary: No rashes, No significant lesion Neurological: Normal speech, Normal strength at 5/5 x4 extr, Normal affect Laboratory Data at Discharge: WBC 11.70 K/uL (4.3-10.9) H D 04/06/21 05:44 Hgb 14.7 g/dL (13.6-17.9) 04/06/21 05:44 Hct 43.6 % (39.6-49.0) 04/06/21 05:44 Plt Count 178 K/uL (152-406) 04/06/21 05:44 PT 11.2 SECONDS (9.5-12.5) 04/03/21 22:10 INR 0.97 04/03/21 22:10 Sodium 140 mmol/L (136-145) 04/06/21 13:01 Potassium 3.6 mmol/L (3.5-5.1) 04/06/21 13:01 BUN 16 mg/dL (7-18) 04/06/21 13:01 Creatinine 0.97 mg/dL (0.55-1.3) 04/06/21 13:01 Glucose 201 mg/dL (74-106) H 04/06/21 13:01 Magnesium 2.0 mg/dL (1.8-2.4) 04/06/21 05:44 Total Bilirubin 0.8 mg/dL (0.2-1.0) 04/05/21 02:50 AST 19 U/L (15-37) 04/05/21 02:50 ALT 27 U/L (12-78) 04/05/21 02:50 Alkaline Phosphatase 88 U/L (45-117) 04/05/21 02:50 Troponin I 10.60 ng/mL (0.0-0.045) H* 04/05/21 02:50 Triglycerides 101 mg/dL (<150) 04/04/21 04:12 Cholesterol 146 mg/dL (<200) 04/04/21 04:12 HDL Cholesterol 37 mg/dL (40-60) L 04/04/21 04:12 Cholesterol/HDL Ratio 3.95 04/04/21 04:12 Home Medications: Aspirin [Aspirin EC 81 MG] 81 mg PO DAILY 30 Days #30 tablet. 04/06/21 Atorvastatin Calcium [Lipitor] 40 mg PO BEDTIME 30 Days #30 tab 04/06/21 Metoprolol Tartrate [Lopressor*] 25 mg PO BID 30 Days #60 tab 04/06/21 Ticagrelor [Brilinta*] 90 mg PO BID 5 Days #10 tablet 04/06/21 lisinopriL [Prinivil*] 20 mg PO DAILY 30 Days #30 tab 04/06/21 New Medications: Aspirin [Aspirin EC 81 MG] 81 mg PO DAILY 30 Days #30 tablet. Ticagrelor [Brilinta*] 90 mg PO BID 5 Days #10 tablet Atorvastatin Calcium [Lipitor] 40 mg PO BEDTIME 30 Days #30 tab Metoprolol Tartrate [Lopressor*] 25 mg PO BID 30 Days #60 tab lisinopriL [Prinivil*] 20 mg PO DAILY 30 Days #30 tab Physician Discharge Instructions: PROBLEM: Chest pain GOAL: Clear understanding of disease process INSTRUCTIONS: You were found to have 80%+ stenosis in multiple coronary arteries and required 3 stents. You are discharged home on aspirin, brilinta, atorvastatin, metoprolol, and lisinopril. The brilinta is very important to take to keep your stents open. Do not miss a dose. You had very high blood pressure at times as well. You are discharged with metoprolol and lisinopril to help with your heart / blood pressure. Follow up with your PCP within 1 week Follow up with Cardiology in ~3-4 weeks Diet: Heart Healthy, Low fat Activity: As tolerated E-script sent to pharmacy IMMUNIZATION Influenza Vaccine Indicated: No Influenza Vaccine Given: Date Given: Pneumonia Vaccine Indicated: No Pneumonia Vaccine Given: Date Given: Diet: AHA Activity: Ad shirley Followup: NONE,NONE [Primary Care Provider] - Alfredo Wheat MD [ACTIVE - CAN ADMIT] - (call to schedule an appointment ) Time spent managing pt's care (in minutes): 45
[2021-04-06] MEDS ORDERED: lisinopriL 20 MG TAB PO ONE (16:00)
[2021-04-06 16:20] VITALS: TEMP 99
[2021-04-06 18:00] VITALS: BP 128/67
[2021-04-06] MEDS ORDERED: TICAGRELOR 90 MG TABLET PO SCH (21:00)
[2021-04-07] MEDS ORDERED: lisinopriL 20 MG TAB PO SCH (09:00)
--- NOTE | 2021-04-07 18:44 | CON ---
Date of Consultation: 04/04/2021 Reason For Consultation: Non-ST elevation myocardial infarction. History Of Present Illness: Mr. Montague is a 76-year-old white male with history of CAD, had stent 20 years ago, has not taken any medicine or seen any physician for years. He came in with substernal c hest pressure with exertion going to the arms, nausea, diaphoresis, shortness of breath. Denied PND, orthopnea, pedal edema, palpitation, or syncope. Denied any fever or chills. Past Medical History: As stated above. Allergies: NONE. Review of Systems: Negative. Social History: Negative. Family History: Noncontributory. Medications: At home are none. Physical Examination: Vital Signs: Stable. Afebrile. HEENT: Negative. Neck: Supple with no bruit. Chest: Clear to auscultation and percussion. Cardiac: Revealed a regular rhythm and rate. No murmurs, gallops, or rubs. Abdomen: Benign. Extremities: Revealed no clubbing, cyanosis, or edema. EKG showed nonspecific changes. Chest x-ray is negative. Troponin is 2.72. Impression And Plan: This is a patient with noncompliance, has a history of CAD, status post stent 2 years ago. He is not taking any medicine, has classic symptoms. Elevated troponin consistent with non-ST elevation myocardial infarction. Continue aspirin, Lovenox, statin, beta-blockers. We will p hussein a heart catheterization on 04/05/2021 to define his coronary anatomy. The patient understands th e risk and the benefits of the procedure and he agrees to proceed. MAGGI/GLEN Voice ID: [id number] Report ID: [id number]
== END 2021-04-06 20:50 | disposition home or self-care (01) | DRG 247 ==
LOC: ER 21:28 → ERHOLD 04-04 00:38 → 2ND 04-04 07:02
PROVIDERS: ADMIT Hospitalist; ATTEND Hospitalist
PROC: B2111ZZ Fluoroscopy of Multiple Coronary Arteries using Low Osmolar Contrast (ICD-10-PCS; 2021-04-04)
PROC: 4A023N7 Measurement of Cardiac Sampling and Pressure, Left Heart, Percutaneous Approach (ICD-10-PCS; 2021-04-04)
PROC: 027136Z Dilation of Coronary Artery, Two Arteries with Three Drug-eluting Intraluminal Devices, Percutaneous Approach (ICD-10-PCS; principal; 2021-04-05)
DX: I21.4 Non-ST elevation (NSTEMI) myocardial infarction (principal); I25.2 Old myocardial infarction; I10 Essential (primary) hypertension; I25.10 Atherosclerotic heart disease of native coronary artery without angina pectoris; Z95.5 Presence of coronary angioplasty implant and graft; Z87.891 Personal history of nicotine dependence; Z79.82 Long term (current) use of aspirin; Z79.899 Other long term (current) drug therapy; Z91.19 Patient's noncompliance with other medical treatment and regimen; Z20.822 Contact with and (suspected) exposure to COVID-19
CPT/HCPCS: 36415; 71045; 80048; 80053; 80061; 80076; 81003; 81015; 83735; 83880; 84439; 84443; 84484; 85025; 85347; 85610; 92928; 92929; 93005; 93306; 93454; 96372; 96374; 99285; C1725; C1760; C1893; J0360; J1644; J2250; J2270; J2405; J2785; J3010; J7040; U0003

== ENCOUNTER 2022-01-18 12:55 | Inpatient (IN) | payer OTHER ==
[2022-01-18 13:41] LABS: Hematocrit 39.9 % (39.6-49.0); Lymphocytes % 15.3 % (15.3-44.8); MCV 90.3 fL (80-100); MPV 8.4 fL (7.6-11.3); RBC Red Blood Cell Count 4.42 M/uL (4.33-5.43)
[2022-01-18 13:59] LABS: Potassium 4.4 mmol/L (3.5-5.1)
[2022-01-18 14:01] LABS: Troponin High Sensitivity 171.3 pg/mL (<58.9)
--- NOTE | 2022-01-18 14:14 | RAD REPORT ---
EXAM DESCRIPTION: RAD - Chest Single View - 01/18/2022 2:07 pm CLINICAL HISTORY: MALAISE Chest pain. COMPARISON: Chest Single View dated 04/03/2021; Chest Single View dated 09/28/2017; CHEST SINGLE VIEW d ated 06/21/2012 FINDINGS: Portable technique limits examination quality. The lungs are grossly clear. The heart is normal in size. No displaced fractures. IMPRESSION: No acute intrathoracic process suspected.
[2022-01-18 15:07] LABS: Urine Blood Negative (Negative); Urine Glucose Negative (Negative); Urine Protein Negative (Negative); Urine Specific Gravity 1.015 (1.005-1.030)
--- NOTE | 2022-01-18 15:51 | EDPHYS ---
Physician Documentation [facility] Name: Nghia Montague Age: 76 yrs Sex: Male : 1945 Arrival Date: 01/18/2022 Time: 12:56 Bed 24 Private MD: ED Physician Dave Ring HPI: 01/18 14:24 This 76 yrs old Male presents to ER via EMS with complaints of General jl9 Weakness x2 weeks. Patient also was sent here for having a HR in the 50's per EMS. . 14:24 Onset: The symptoms/episode began/occurred 2 week(s) ago. Associated signs and jl9 symptoms: The patient has no apparent associated signs or symptoms, Pertinent positives:. Modifying factors: The patient symptoms are alleviated by nothing, the patient symptoms are aggravated by nothing. The patient has not experienced similar symptoms in the past. Historical: - Allergies: 12:58 Simvastatin; bp - PMHx: 12:58 Myocardial infarction; bp - Immunization history:: Adult Immunizations up to date. - Social history:: Smoking status: unknown. ROS: 14:25 Constitutional: Negative for fever, chills, and weight loss, Eyes: Negative for injury, jl9 pain, redness, and discharge, ENT: Negative for injury, pain, and discharge, Neck: Negative for injury, pain, and swelling, Cardiovascular: Negative for chest pain, palpitations, and edema, Respiratory: Negative for shortness of breath, cough, wheezing, and pleuritic chest pain, Abdomen/GI: Negative for abdominal pain, nausea, vomiting, diarrhea, and constipation, Back: Negative for injury and pain, : Negative for injury, bleeding, discharge, and swelling, MS/Extremity: Negative for injury and deformity, Skin: Negative for injury, rash, and discoloration. 14:25 Psych: Negative for depression, anxiety, suicide ideation, homicidal ideation, and hallucinations, Allergy/Immunology: Negative for hives, rash, and allergies, Endocrine: Negative for neck swelling, polydipsia, polyuria, polyphagia, and marked weight changes, Hematologic/Lymphatic: Negative for swollen nodes, abnormal bleeding, and unusual bruising. 14:25 Neuro: Positive for weakness. Exam: 14:26 Constitutional: This is a well developed, well nourished patient who is awake, alert, jl9 and in no acute distress. Head/Face: Normocephalic, atraumatic. Eyes: Pupils equal round and reactive to light, extra-ocular motions intact. Lids and lashes normal. Conjunctiva and sclera are non-icteric and not injected. Cornea within normal limits. Periorbital areas with no swelling, redness, or edema. ENT: Mucous membranes moist. Neck: Trachea midline, no thyromegaly or masses palpated, and no cervical lymphadenopathy. Supple, full range of motion without nuchal rigidity, or vertebral point tenderness. No Meningismus. Chest/axilla: Normal chest wall appearance and motion. Nontender with no deformity. No lesions are appreciated. Cardiovascular: Regular rate and rhythm with a normal S1 and S2. No gallops, murmurs, or rubs. Normal PMI, no JVD. No pulse deficits. Respiratory: Lungs have equal breath sounds bilaterally, clear to auscultation and percussion. No rales, rhonchi or wheezes noted. No increased work of breathing, no retractions or nasal flaring. Abdomen/GI: Soft, non-tender, with normal bowel sounds. No distension or tympany. No guarding or rebound. No evidence of tenderness throughout. Back: No spinal tenderness. No costovertebral tenderness. Full range of motion. Skin: Warm, dry with normal turgor. Normal color with no rashes, no lesions, and no evidence of cellulitis. MS/ Extremity: Pulses equal, no cyanosis. Neurovascular intact. Full, normal range of motion. Neuro: Awake and alert, GCS 15, oriented to person, place, time, and situation. Cranial nerves II-XII grossly intact. Motor strength 5/5 in all extremities. Sensory grossly intact. Cerebellar exam normal. Normal gait. Psych: Awake, alert, with orientation to person, place and time. Behavior, mood, and affect are within normal limits. Vital Signs: 12:57 BP 180 / 82; Pulse 56; Resp 16; Temp 98; Pulse Ox 97% ; bp 14:31 BP 171 / 61; Pulse 51; Resp 16; Pulse Ox 97% ; bp 16:00 BP 137 / 64; Pulse 56; Resp 18; Pulse Ox 98% ; bp 18:00 BP 152 / 69; Pulse 61; Resp 15; Pulse Ox 97% ; bp 19:00 BP 150 / 71; Pulse 52; Pulse Ox 96% on R/A; ll3 20:11 BP 167 / 64; Pulse 50; Resp 16; Pulse Ox 97% on R/A; ll3 21:00 BP 164 / 70; Pulse 57; Pulse Ox 96% on R/A; ll3 22:00 BP 140 / 63; Pulse 50; Pulse Ox 95% on R/A; ll3 23:55 BP 155 / 69; Pulse 56; Resp 17; Pulse Ox 97% on R/A; ll3 MDM: 12:57 Patient medically screened. jl9 14:26 Data reviewed: vital signs, nurses notes. jl9 15:48 Counseling: I had a detailed discussion with the patient and/or guardian regarding: the jl9 historical points, exam findings, and any diagnostic results supporting the discharge/admit diagnosis, lab results, radiology results, the need for outpatient follow up, to return to the emergency department if symptoms worsen or persist or if there are any questions or concerns that arise at home, Patient declines the recommendation for observation and wants to be discharged. . 15:51 Response to treatment: the patient's symptoms have markedly improved after treatment, jl9 the patient's condition has returned to base line. 16:23 Counseling: I had a detailed discussion with the patient and/or guardian regarding: the jl9 need for further work-up and treatment in the hospital, Dr. Ring discussed with patient recommendation to come in for OBS and patient accepted. . 19:31 Physician consultation: [facility]. Spoke to ANDRA Fitzgerald jl9 and she will see the patient due to being unable to get a response from [facility]. . 01/18 13:11 Order name: Basic Metabolic Panel; Complete Time: 14:16 01/18 13:11 Order name: CBC with Diff; Complete Time: 14:16 01/18 13:11 Order name: Troponin HS; Complete Time: 14:16 01/18 13:11 Order name: SARS-COV-2 RT PCR (Document "Date of Onset" if Symptomatic); Complete Time: 14:42 01/18 14:43 Order name: Troponin High Sensitivity; Complete Time: 15:45 01/18 15:07 Order name: Urine Dipstick-Ancillary; Complete Time: 15:26 EDMN 01/19 05:11 Order name: CBC with Automated Diff; Complete Time: 05:40 [place] 01/19 05:30 Order name: Basic Metabolic Panel; Complete Time: 05:40 EDMS 01/19 05:30 Order name: Phosphorus; Complete Time: 05:40 [place] 01/19 05:30 Order name: Lipid Profile; Complete Time: 05:40 MS 01/19 05:30 Order name: T4 Free; Complete Time: 05:40 EDMN 01/19 05:30 Order name: Magnesium; Complete Time: 05:40 EDMN 01/19 05:30 Order name: Thyroid Stimulating Hormone; Complete Time: 05:40 EDMS 01/19 07:25 Order name: Creatine Phosphokinase [facility] 01/18 13:11 Order name: XRAY Chest (1 view); Complete Time: 14:16 [facility] 01/18 13:11 Order name: EKG; Complete Time: 13:12 [facility] 01/18 13:11 Order name: Cardiac monitoring; Complete Time: 13:45 [facility] 01/18 13:11 Order name: EKG - Nurse/Tech; Complete Time: 13:45 [facility] 01/18 13:11 Order name: IV Saline Lock; Complete Time: 13:27 [facility] 01/18 13:11 Order name: Labs collected and sent; Complete Time: 13:27 [facility] 01/18 13:11 Order name: O2 Per Protocol; Complete Time: 13:19 [facility] 01/18 13:11 Order name: O2 Sat Monitoring; Complete Time: 13:19 [facility] 01/18 16:24 Order name: CT Chest For PE Angio [facility] 01/18 16:50 Order name: CT; Complete Time: 18:00 [facility] 01/19 07:25 Order name: CKMB Creatine Kinase MB [facility] 01/19 07:25 Order name: Troponin High Sensitivity [place] 01/19 07:25 Order name: NT PRO-BNP [facility] 01/19 11:59 Order name: Fecal Leukocyte Stain [facility] 01/19 11:59 Order name: C.difficile GDH Ag [facility] 01/18 14:43 Order name: Urine Dipstick-Ancillary (obtain specimen); Complete Time: 15:07 Administered Medications: 16:15 Drug: Rocephin (cefTRIAXone) 1 grams Route: IV; Rate: calculated rate; Site: right bp antecubital; Disposition: 16:09 Co-signature as Attending Physician, Dave iRng MD. rn Disposition Summary: 01/18/22 19:31 Hospitalization Ordered Hospitalization Status: Observation(01/18/22 19:31) jl9 Provider: Dennis Bauer(01/18/22 19:31) jl9 Condition: Stable(01/18/22 19:31) jl9 Problem: new(01/18/22 19:31) jl9 Symptoms: are unchanged(01/18/22 19:31) jl9 Bed/Room Type: Standard(01/18/22 19:31) jl9 Location: Telemetry/MedSurg (observation)(01/19/22 14:40) dw Room Assignment: 417(01/19/22 14:40) dw Diagnosis - Muscle weakness (generalized)(01/18/22 19:31) jl9 Forms: - Medication Reconciliation Form jl9 - SBAR form jl9 Signatures: Dispatcher [employer] EDMS Kimmy Garza RN RN mw Woody, Diana RN RN Dave Singleton MD MD rn Peltier, Brian, RN RN bp Linares, John jl9 Brown, Sophia, PA-C PA-Nitish sb4 Corrections: (The following items were deleted from the chart) 16:21 15:50 Home jl9 jl9 16:21 15:50 Stable jl9 jl9 16:21 15:50 UTI/ Urinary tract infection, site not specified jl9 jl9 17:02 16:23 Inpatient Admission jl9 jl9 17:02 16:23 Dennis Bauer jl9 jl9 17:02 16:23 Telemetry/MedSurg (observation) jl9 jl9 17:02 16:23 Stable jl9 jl9 17:02 16:23 new jl9 jl9 17:02 16:23 are unchanged jl9 jl9 17:02 16:23 Standard jl9 jl9 17:02 16:23 jl9 jl9 17:02 16:23 Muscle weakness (generalized) jl9 jl9 19:30 17:02 dsf jl9 jl9 19:30 17:02 [facility] jl9 jl9 19:30 17:02 Higher level of care jl9 jl9 19:30 17:02 Stable jl9 jl9 19:30 17:02 new jl9 jl9 19:30 17:02 are unchanged jl9 jl9 19:30 17:02 UTI/ Urinary tract infection, site not specified [place] [id number] 17:02 Muscle weakness (generalized) [place] [id number] 19:31 Telemetry/MedSurg (observation) [facility] 19:31 [facility] 01/19 14:40 01/18 19:36 [facility] 01/19 14:40 01/18 19:36 [facility] [employer] [facility]
--- NOTE | 2022-01-18 15:51 | ER ---
Nurse's Notes [facility] Name: Nghia Montague Age: 76 yrs Sex: Male : 1945 Arrival Date: 01/18/2022 Time: 12:56 Bed 24 Private MD: Diagnosis: Muscle weakness (generalized) Presentation: 01/18 12:57 Chief complaint: EMS states: GEN WEAKNESS AND MALAISE x2 WK, SENT FROM [place] FOR bp BRADYCARDIA. Coronavirus screen: At this time, the client does not indicate any symptoms associated with coronavirus-19. Ebola Screen: No symptoms or risks identified at this time. Initial Sepsis Screen: Does the patient meet any 2 criteria? No. Patient's initial sepsis screen is negative. Does the patient have a suspected source of infection? No. Patient's initial sepsis screen is negative. Risk Assessment: Do you want to hurt yourself or someone else? Patient reports no desire to harm self or others. Onset of symptoms is unknown. Care prior to arrival: IV initiated. 20 [place], in the right antecubital area. 12:57 Method Of Arrival: EMS: [facility] bp 12:57 Acuity: TEZ 3 bp Triage Assessment: 12:58 General: Appears in no apparent distress. Behavior is calm, cooperative, appropriate bp for age. Pain: Denies pain. EENT: No deficits noted. Neuro: Reports weakness. Cardiovascular: No deficits noted. Respiratory: No deficits noted. GI: Reports nausea. : No signs and/or symptoms were reported regarding the genitourinary system. Derm: No deficits noted. Musculoskeletal: No signs and/or symptoms reported regarding the musculoskeletal system. Historical: - Allergies: 12:58 Simvastatin; bp - PMHx: 12:58 Myocardial infarction; bp - Immunization history:: Adult Immunizations up to date. - Social history:: Smoking status: unknown. Screenin:59 Abuse screen: Denies threats or abuse. Denies injuries from another. Nutritional bp screening: No deficits noted. Tuberculosis screening: No symptoms or risk factors identified. Fall Risk None identified. Assessment: 12:59 General: SEE TRIAGE NOTE. bp 14:32 Reassessment: No changes from previously documented assessment. Patient and/or family bp updated on plan of care and expected duration. Pain level reassessed. 16:00 Reassessment: DC ON HOLD FOR IV ABX. bp 18:00 Reassessment: DC CANCELLED FOR [facility] TRANSF[facility]. TRANSFER INITIATED. bp 20:11 Reassessment: No changes from previously documented assessment. Patient and/or family ll3 updated on plan of care and expected duration. Pain level reassessed. Patient denies pain at this time. 23:50 Reassessment: Pt states "the diarrhea is back", pt ambulates to the restroom without ll3 assistance. 01/19 02:17 Reassessment: No changes from previously documented assessment. Patient and/or family ll3 updated on plan of care and expected duration. Pain level reassessed. Vital Signs: 01/18 12:57 BP 180 / 82; Pulse 56; Resp 16; Temp 98; Pulse Ox 97% ; bp 14:31 BP 171 / 61; Pulse 51; Resp 16; Pulse Ox 97% ; bp 16:00 BP 137 / 64; Pulse 56; Resp 18; Pulse Ox 98% ; bp 18:00 BP 152 / 69; Pulse 61; Resp 15; Pulse Ox 97% ; bp 19:00 BP 150 / 71; Pulse 52; Pulse Ox 96% on R/A; ll3 20:11 BP 167 / 64; Pulse 50; Resp 16; Pulse Ox 97% on R/A; ll3 21:00 BP 164 / 70; Pulse 57; Pulse Ox 96% on R/A; ll3 22:00 BP 140 / 63; Pulse 50; Pulse Ox 95% on R/A; ll3 23:55 BP 155 / 69; Pulse 56; Resp 17; Pulse Ox 97% on R/A; ll3 ED Course: 12:56 Patient arrived in ED. bp 12:57 Alex Kline is PHCP. jl9 12:57 Dave Ring MD is Attending Physician. jl9 12:58 Triage completed. bp 12:58 Arm band placed on. bp 12:59 Patient has correct armband on for positive identification. Bed in low position. Call bp light in reach. Side rails up X2. 12:59 Maintain EMS IV. Dressing intact. Good blood return noted. Site clean \\T\\ dry. Gauge \\T\\ bp site: 20 [place] R AC. 13:19 Daren Sy, RN is Primary Nurse. bp 13:27 SARS-COV-2 RT PCR (Document "Date of Onset" if Symptomatic) Sent. mb8 14:08 XRAY Chest (1 view) In Process Unspecified. EDMS 16:22 Dennis Bauer is Hospitalizing Provider. jl9 17:23 initiated a transfer with Rey from the [facility] transfer center. eb 19:30 Dennis Bauer is Hospitalizing Provider. jl9 19:40 Primary Nurse role handed off by Daren Sy, RN 2 20:10 Alex Warren, SALTY is Primary Nurse. 3 20:54 Transfer to the [place] canceled. 2 01/19 08:19 Primary Nurse role handed off by Alex Warren, SALTY eb Administered Medications: 01/18 16:15 Drug: Rocephin (cefTRIAXone) 1 grams Route: IV; Rate: calculated rate; Site: right bp antecubital; Medication: 12:59 VIS not applicable for this client. bp Outcome: 15:50 Discharge ordered by MD. jl9 16:23 Decision to Hospitalize by Provider. jl9 17:02 ER care complete, transfer ordered by MD. jl9 19:31 Decision to Hospitalize by Provider. jl9 01/19 15:39 Patient left the ED. eb Signatures: Dispatcher [employer] EDMS Daren Sy, RN RN Sandie Tapia mw2 Camila Suárez eb Alex Warren, RN RN 3 Alex Kline jl9 Justice Arce, RN RN mb8
[2022-01-18] MEDS ORDERED: CEFTRIAXONE 1000 MG/VIAL ONE (16:26)
[2022-01-18] MEDS ORDERED: NA CHLORIDE 0.9% 100 ML ONE (16:26)
--- NOTE | 2022-01-18 16:49 | RAD REPORT ---
EXAM DESCRIPTION: CT - Chest For Pe Angio - 01/18/2022 4:36 pm CLINICAL HISTORY: Chest pain. asdf COMPARISON: THORAX WO CONTRAST dated 11/13/2010 TECHNIQUE: CT angiogram of the pulmonary arteries was performed with MIP. All CT scans are performed using dose optimization technique as appropriate and may include automated exposure control or mA/KV adjustment according to patient size. FINDINGS: No evidence of pulmonary thromboembolism. No acute aortic finding demonstrated. The lungs are mildly emphysematous but clear. No significant pericardial or pleural fluid. No concerning bony finding. IMPRESSION: No evidence of pulmonary thromboembolism. No acute lung findings.
--- NOTE | 2022-01-18 21:14 | P.HP ---
Certification for Inpatient Patient admitted to: Observation With expected LOS: <2 Midnights Patient will require the following post-hospital care: None Practitioner: I am a practitioner with admitting privileges, knowledge of patient current condition, hospital course, and medical plan of care. Services: Services provided to patient in accordance with Admission requirements found in Title 42 Section 412.3 of the Code of Federal Regulations Patient History Date of Service: 01/18/22 Reason for admission: Elevated Troponin History of Present Illness: Patient is a 76-year-old male with history of hypertension and CAD who presented the emergency department with complaints of generalized weakness. Patient was seen at the [facility] today and sent here for further evaluation due to symptomatic bradycardia. Pulse ranging 50-60 here. Troponin elevated at 170. Repeat 190. Patient denies any chest pain. He does, however, report diarrhea, dehydration, and unintentional weight loss over (unsure how much) the past 6 months. He denies any recent colonoscopy. He states that he went to [place] [facility] a few weeks ago where they found a mass on his thyroid "right lobe nonspecific mass, nonspecific widening of the lower pole of the right thyroid lobe" that was to be followed up non emergently. 9 months ago, patient had cardiac cath which revealed significant CAD and patient underwent PCI x2. Attempt was made to transfer patient back to [place], but unsuccessful. He is admitted for further management. Allergies simvastatin Adverse Reaction (Mild, Verified 04/05/21 13:12) muscle cramps/increase in URI Home Medications: Aspirin [Aspirin EC 81 MG] 81 mg PO DAILY 30 Days #30 tablet. 04/06/21 Atorvastatin Calcium [Lipitor] 40 mg PO BEDTIME 30 Days #30 tab 04/06/21 Metoprolol Tartrate [Lopressor*] 25 mg PO BID 30 Days #60 tab 04/06/21 Ticagrelor [Brilinta*] 90 mg PO BID 5 Days #10 tablet 04/06/21 lisinopriL [Prinivil*] 20 mg PO DAILY 30 Days #30 tab 04/06/21 - Past Medical/Surgical History Diabetic: No -: CAD -: Hypertension -: Cardiac stent x 3 Psychosocial/ Personal History: Patient is a . - Family History Mother -: Diabetes, Cancer Notes: breast cancer - Social History Smoking Status: Never smoker Alcohol use: No CD- Drugs: No Caffeine use: Yes Place of Residence: Home Review of Systems General: Weakness Gastrointestinal: Diarrhea Physical Examination - Physical Exam General: Alert, In no apparent distress, Other (unkempt) HEENT: Atraumatic, PERRLA, EOMI, Sclerae nonicteric Neck: Supple, 2+ carotid pulse no bruit, No LAD, Without JVD or thyroid abnormality Respiratory: Clear to auscultation bilaterally, Normal air movement Cardiovascular: Regular rate/rhythm, Normal S1 S2 Gastrointestinal: Normal bowel sounds, No tenderness Musculoskeletal: No tenderness Integumentary: No rashes Neurological: Normal speech, Normal strength at 5/5 x4 extr, Normal tone, Normal affect - Studies Laboratory Data (last 24 hrs) 01/18/22 13:24: WBC 6.40, Hgb 13.7, Hct 39.9, Plt Count 189 01/18/22 13:24: Sodium 136, Potassium 4.4, BUN 14, Creatinine 1.29, Glucose 103 Assessment and Plan - Problems (Diagnosis) (1) Elevated troponin Current Visit: Yes Status: Acute (2) CAD (coronary artery disease) Current Visit: Yes Status: Acute Qualifiers: Coronary Disease-Associated Artery/Lesion type: [place] artery [place] vs. transplanted heart: [place] heart Associated angina: without angina Qualified Code(s): I25.10 - Atherosclerotic heart disease of [place] coronary artery without angina pectoris (3) Thyroid nodule Current Visit: Yes Status: Acute (4) Unintentional weight loss Current Visit: Yes Status: Acute (5) Generalized weakness Current Visit: Yes Status: Acute (6) HTN (hypertension) Current Visit: Yes Status: Chronic Qualifiers: Hypertension type: primary hypertension Qualified Code(s): I10 - Essential (primary) hypertension - Plan -Patient is admitted for observation -Monitor on telemetry -Will recheck serial cardiac enzymes as well as BNP. Patient denies chest pain. Chest xray and CTA negative -Lipid and thyroid panel -Cardiology consult. Echo ordered -IV fluids for dehydration. Stool studies sent for recurrent diarrhea -Physical therapy consult -Patient will need follow up to further evaluate thyroid nodule & unintentional weight loss. He was 79 kg in March. Current weight pending. -Monitor and replete electrolytes per protocol -Reconcile and continue home medications. HOLD beta blockers given bradycardia. -Lovenox for VTE prophylaxis -Full code Discharge Plan: Home Plan to discharge in: 24 Hours - Advance Directives Does patient have a Living Will: No Does patient have a Durable POA for Healthcare: Yes - Code Status/Comfort Care Code Status Assessed: Yes (Full) Critical Care: No Time Spent Managing Pts Care (In Minutes): 50
[2022-01-19] MEDS ORDERED: ACETAMINOPHEN 500 MG TAB PO PRN (03:40)
[2022-01-19] MEDS ORDERED: ONDANSETRON 4 MG/2 ML VIAL IV PRN (03:40)
[2022-01-19] MEDS ORDERED: NA CHLORIDE 0.9% 1,000 ML ONE (04:49)
[2022-01-19] MEDS: NA CHLORIDE 0.9% 1,000 ML IV SCH ×3 (04:50→21:14)
[2022-01-19 05:02] VITALS: BMI 26.6
[2022-01-19 05:11] LABS: Absolute Lymphocytes (CBC) 1.2 K/uL (0.7-4.9); Hematocrit 41.6 % (39.6-49.0); Lymphocytes % 17.1 % (15.3-44.8); MCV 90.8 fL (80-100); MPV 8.4 fL (7.6-11.3); RBC Red Blood Cell Count 4.58 M/uL (4.33-5.43)
[2022-01-19 05:30] LABS: Magnesium 2.1 mg/dL (1.8-2.4); Phosphorus 2.5 mg/dL (2.5-4.9); Potassium 4.1 mmol/L (3.5-5.1); Thyroid Stimulating Hormone 2.98 uIU/mL (0.360-3.740)
[2022-01-19] MEDS ORDERED: ENOXAPARIN 40 MG/0.4 ML SQ ONE (08:27)
[2022-01-19] MEDS: ENOXAPARIN 40 MG/0.4 ML SQ SCH (09:00)
[2022-01-19 11:59] LABS: C.diff Antigen/Toxin Ag neg : Tox neg (NEG : NEG)
--- NOTE | 2022-01-19 18:19 | P.PN ---
Subjective Date of Service: 01/19/22 Chief Complaint: Elevated Troponin Patient denies any chest pain. He is complaining of diarrhea and loss of appetite. Heart rate has improved off beta-gladys. Physical Examination - Vital Signs Temperature: 97.3 F Blood Pressure: 176/75 Pulse: 63 Respirations: 14 Pulse Ox (%): 95 Assessment And Plan - Current Problems (Diagnosis) (1) Thyroid mass Current Visit: Yes Status: Acute (2) Diarrhea Current Visit: Yes Status: Acute (3) CAD (coronary artery disease) Current Visit: Yes Status: Acute Qualifiers: Coronary Disease-Associated Artery/Lesion type: [place] artery [place] vs. transplanted heart: [place] heart Associated angina: without angina Qualified Code(s): I25.10 - Atherosclerotic heart disease of [place] coronary artery without angina pectoris (4) Elevated troponin Current Visit: Yes Status: Acute (5) GERD (gastroesophageal reflux disease) Onset Date: 09/29/17 Current Visit: No Status: Chronic Qualifiers: Esophagitis presence: without esophagitis Qualified Code(s): K21.9 - Gastro-esophageal reflux disease without esophagitis - Plan Physical Exam General: Alert, In no apparent distress. Neck: Supple, Without JVD.ty Respiratory: Clear to auscultation bilaterally, Normal air movement Cardiovascular: Regular rate/rhythm, Normal S1 S2 Gastrointestinal: Normal bowel sounds, No tenderness Integumentary: No rashes Neurological: No focal motor deficit. Plan: Heart rate has improved after stopping metoprolol. Troponin trended slightly up. Patient seen by cardiology who stated patient has residual cardiac vessel disease that needs to be addressed. Aspirin and Brilinta per Dr. Mary Alice Wheat is planning cardiac catheterization next week. Stool studies ordered to evaluate the diarrhea. Start Cipro and Flagyl. IV hydration. Patient with a thyroid mass. TSH is within normal limits. Further work-up as outpatient.
--- NOTE | 2022-01-19 19:34 | CON ---
Date of Consultation: 01/19/2022 Reason For Consultation: Elevated troponin. History Of Present Illness: A 76-year-old male with history of coronary artery disease, status post cardiac stents placement, presented after generalized weakness, seen at the [facility] and sent to the hospit al due to symptomatic bradycardia. The patient denies having any chest pain or shortness of breath. Troponin was slightly elevated and apparently the patient had significant amount of diarrhea, was de hydrated, IV fluids made him feel much better. Past Medical History: Coronary artery disease, hypertension. Medications: Refer to reconciliation sheet for detailed list. Allergies: SIMVASTATIN. Family History: No premature coronary artery disease or cancer. Social History: Does not smoke or drink. Does not use any drugs. Review of Systems: All systems reviewed and they were negative except what mentioned in HPI. Physical Examination: Vital Signs: Reviewed. Head and Neck: Pupils are equal, reactive to light. Intact eye movements. No JVD. No cervical lym phadenopathy. Neck is supple. Thyroid is not enlarged. Lungs: Clear to auscultation bilaterally. No rhonchi, wheezing, or crackles. No accessory muscle u se. Heart: Regular rate and rhythm. No extra sounds. Abdomen: Soft, nontender. Bowel sounds positive. No organomegaly. No masses or hernia. No rigidi ty or rebound. Extremities: No clubbing or cyanosis. Intact pulses. Skin: No rash. Neurologic: Alert, awake, oriented x3. No acute focal deficits appreciated. Investigations: His troponin 204. BUN is 13, creatinine 0.89, potassium is 4.1, and hemoglobin is 1 4.5. Assessment And Recommendations: 1.Elevated troponin. The patient is known to have history of coronary artery disease, status post h eart catheterization on 04/05/2021 and at that time, he had patent stent of the LAD and he has diseas e of the OM that needed to be staged. We will plan for coronary angiogram early next week in an atte mpt to the OM and identify his coronary anatomy. In the interim, discontinue Brilinta and aspirin. 2.Dyslipidemia. Start Lipitor 40 mg at bedtime. 3.Dehydration from aggressive diarrhea. Gentle IV hydration is recommended. SR/MODL Voice ID: [id number] Report ID: [id number]
[2022-01-19] MEDS ORDERED: CIPROFLOXACIN HCL 500 MG TAB ONE (20:50)
[2022-01-19] MEDS ORDERED: metroNIDAZOLE 500 MG TABLET ONE (20:51)
[2022-01-19] MEDS: TICAGRELOR 90 MG TABLET PO SCH (21:00)
[2022-01-19] MEDS: CIPROFLOXACIN HCL 500 MG TAB PO SCH (21:06)
[2022-01-19] MEDS: metroNIDAZOLE 500 MG TABLET PO SCH (21:06)
[2022-01-19 23:33] LABS: Calcium Oxalate Crystals- Ur Few /HPF (None Seen); Specific Gravity 1.027 (1.005-1.030); Urine Bacteria <20 /HPF (<20); Urine Bilirubin NEGATIVE (Negative); Urine Blood Trace (Negative); Urine Clarity Clear (Clear); Urine Color Yellow (Yellow); Urine Glucose NEGATIVE (Negative); Urine Granular Casts 0-5 /LPF (None Seen); Urine Mucus Slight /HPF (None Seen); Urine Protein TRACE (Negative); Urine RBC 21-50 /HPF (None Seen); Urine Urobilinogen Normal (Normal); Urine WBC Clump Rare /HPF (None Seen); Urine pH 5.5 (5.0-7.0)
[2022-01-20 05:35] LABS: Absolute Lymphocytes (CBC) 1.3 K/uL (0.7-4.9); Hematocrit 43.3 % (39.6-49.0); Lymphocytes % 18.4 % (15.3-44.8); MCV 92.5 fL (80-100); MPV 8.7 fL (7.6-11.3); RBC Red Blood Cell Count 4.68 M/uL (4.33-5.43)
[2022-01-20 05:47] LABS: Potassium 3.9 mmol/L (3.5-5.1)
[2022-01-20] MEDS: metroNIDAZOLE 500 MG TABLET PO SCH ×3 (08:21→21:31)
[2022-01-20] MEDS: CIPROFLOXACIN HCL 500 MG TAB PO SCH ×2 (08:21→21:31)
[2022-01-20] MEDS: ENOXAPARIN 40 MG/0.4 ML SQ SCH (08:21)
[2022-01-20] MEDS: ASPIRIN 81 MG CHEWABLE TABLET PO SCH (08:21)
[2022-01-20] MEDS: TICAGRELOR 90 MG TABLET PO SCH ×2 (08:22→21:31)
[2022-01-20] MEDS ORDERED: POTASSIUM CL SA 10 MEQ TAB PO ONE ×2 (09:00→10:23)
[2022-01-20] MEDS: NA CHLORIDE 0.9% 1,000 ML IV SCH ×2 (11:05→18:30)
--- NOTE | 2022-01-20 13:33 | P.PN ---
Subjective Date of Service: 01/20/22 Chief Complaint: Elevated Troponin Patient denies any chest pain. He states his diarrhea has stopped Physical Examination - Vital Signs Temperature: 97.8 F Blood Pressure: 148/67 Pulse: 75 Respirations: 16 Pulse Ox (%): 96 - Studies Microbiology Data (last 24 hrs): 01/19/22 18:00 Stool Occult Blood - Final 01/19/22 10:46 Stool Fecal Leukocyte Stain - Final Assessment And Plan - Current Problems (Diagnosis) (1) Thyroid mass Current Visit: Yes Status: Acute (2) Diarrhea Current Visit: Yes Status: Acute (3) CAD (coronary artery disease) Current Visit: Yes Status: Acute Qualifiers: Coronary Disease-Associated Artery/Lesion type: [place] artery [place] vs. transplanted heart: [place] heart Associated angina: without angina Qualified Code(s): I25.10 - Atherosclerotic heart disease of [place] coronary artery without angina pectoris (4) Elevated troponin Current Visit: Yes Status: Acute (5) GERD (gastroesophageal reflux disease) Onset Date: 09/29/17 Current Visit: No Status: Chronic Qualifiers: Esophagitis presence: without esophagitis Qualified Code(s): K21.9 - Gastro-esophageal reflux disease without esophagitis - Plan Physical Exam General: Alert, In no apparent distress. Neck: Supple, Without JVD. Respiratory: Clear to auscultation bilaterally, Normal air movement Cardiovascular: Regular rate/rhythm, Normal S1 S2 Gastrointestinal: Normal bowel sounds, No tenderness Integumentary: No rashes Neurological: No focal motor deficit. Plan: Heart rate has improved after stopping metoprolol. Troponin trended slightly up. Patient seen by cardiology who stated patient has residual cardiac vessel disease that needs to be addressed. Aspirin and Brilinta per Dr. Mary Alice Wheat is planning cardiac catheterization early next week. Stool fecal leukocyte positive. Possible enterocolitis Continue Cipro and Flagyl. IV hydration. Patient with a thyroid mass. TSH is within normal limits. Further work-up as outpatient.
--- NOTE | 2022-01-20 15:25 | PN ---
Date of Progress Note: 01/20/2022 Subjective: The patient seen by bedside. He is doing clinically well. Energy level is improving. No chest pain or shortness of breath. Review of Systems: No active chest pain, shortness of breath, orthopnea, cough. No nausea, vomiting, diarrhea. All oth er systems reviewed and they were negative. Physical Examination: Vital Signs: Temperature is 97.8, pulse 75, breathing at 16, blood pressure 148/67, saturating 96% o n room air. General: Pleasant elderly male, in no apparent distress. Head and Neck: Pupils are equal, reactive to light. Intact eye movements. No JVD. No cervical lym phadenopathy. Neck is supple. Thyroid is not enlarged. Lungs: Clear to auscultation bilaterally. No rhonchi, wheezing, or crackles. No accessory muscle u se. Heart: Regular rate and rhythm. No extra sounds. Abdomen: Soft, nontender. Bowel sounds positive. No organomegaly. No masses or hernia. No rigidi ty or rebound. Extremities: No edema, clubbing, or cyanosis. Intact pulses. Skin: No rash. Neurologic: Alert, awake, oriented x3. No acute focal deficits appreciated. Investigations: BUN 8, creatinine 0.8. Troponin peaked at 204 and hemoglobin is 14.5. Assessment And Recommendations: 1.Non-ST elevation myocardial infarction. The patient has known significant OM1 disease that needs percutaneous coronary intervention. We will plan for coronary angiogram tomorrow. Keep the patient n.p.o. past midnight please and continue with aspirin and Brilinta. 2.Dehydration, generalized weakness due to that. This is resolved with IV fluids. 3.Diarrhea, likely some colon infection, on antibiotics. SR/MODL Voice ID: [id number] Report ID: [id number]
[2022-01-20 20:25] LABS: Protime INR 1.06
[2022-01-21 04:20] LABS: Potassium 4.6 mmol/L (3.5-5.1)
[2022-01-21] MEDS: NA CHLORIDE 0.9% 1,000 ML IV SCH (06:00)
[2022-01-21] MEDS: CIPROFLOXACIN HCL 500 MG TAB PO SCH ×2 (07:43→13:55)
[2022-01-21] MEDS: ASPIRIN 81 MG CHEWABLE TABLET PO SCH (07:43)
[2022-01-21] MEDS: TICAGRELOR 90 MG TABLET PO SCH (07:43)
[2022-01-21] MEDS: metroNIDAZOLE 500 MG TABLET PO SCH ×2 (07:44→13:55)
[2022-01-21] MEDS ORDERED: NA CHLORIDE 0.9% 500 ML ONE (08:35)
[2022-01-21] MEDS ORDERED: LIDOCAINE 1% MPF 30 ML VIAL ONE (10:59)
[2022-01-21] MEDS ORDERED: HEPA 1000U/500MLS 1,000 UNIT/500 ML BAG IV ONE (10:59)
[2022-01-21] MEDS ORDERED: FENTANYL CITR 100 MCG/2 ML ONE (11:00)
[2022-01-21] MEDS ORDERED: NITROGLYCERIN/D5W 0 MG/0 ML BTL IV ONE (11:00)
[2022-01-21] MEDS ORDERED: MIDAZOLAM HCL 2 MG/2 ML INJ ONE (11:00)
[2022-01-21] MEDS ORDERED: NA CHLORIDE 0.9% 0 ML IV ONE (11:01)
[2022-01-21] MEDS ORDERED: ATROPINE SULF 1 MG/10 ML SYR IV ONE (11:01)
--- NOTE | 2022-01-21 12:51 | P.DS ---
Admission Date: 01/19/22 Discharge Date: 01/21/22 Disposition: ROUTINE DISCHARGE Discharge Condition: FAIR Reason for Admission: Elevated Troponin - Problems (1) Thyroid mass Current Visit: Yes Status: Acute (2) Diarrhea Current Visit: Yes Status: Acute (3) CAD (coronary artery disease) Current Visit: Yes Status: Acute Qualifiers: Coronary Disease-Associated Artery/Lesion type: [place] artery [place] vs. transplanted heart: [place] heart Associated angina: without angina Qualified Code(s): I25.10 - Atherosclerotic heart disease of [place] coronary artery without angina pectoris (4) Elevated troponin Current Visit: Yes Status: Acute (5) GERD (gastroesophageal reflux disease) Onset Date: 09/29/17 Current Visit: No Status: Chronic Qualifiers: Esophagitis presence: without esophagitis Qualified Code(s): K21.9 - Gastro-esophageal reflux disease without esophagitis Brief History of Present Illness: Patient is a 76-year-old male with history of hypertension and CAD who presented the emergency department with complaints of generalized weakness. Patient was seen at the [place] today and sent here for further evaluation due to symptomatic bradycardia. Pulse ranging 50-60 here. Troponin elevated at 170. Repeat 190. Patient denied any chest pain. He however, report diarrhea, dehydration, and unintentional weight loss over (unsure how much) the past 6 months. He denies any recent colonoscopy. He states that he went to [place] ED a few weeks ago where they found a mass on his thyroid "right lobe nonspecific mass, nonspecific widening of the lower pole of the right thyroid lobe" that was to be followed up non emergently. 9 months ago, patient had cardiac cath which revealed s ignificant CAD and patient underwent PCI x2. Attempt was made to transfer patient back to [place], but unsuccessful. Patient was admitted for further management. Hospital Course: Patient admitted to the medical floor and troponin trended. Troponin trended up. His home dose metoprolol was discontinued. His heart rate improved after stopping metoprolol and currently in sinus rhythm Patient seen by cardiology who stated patient has residual cardiac vessel disease that needs to be addressed. Patient started on aspirin and Brilinta per Dr. Wheat and underwent cardiac catheterization and cardiology currently recommending medical management. He complained of diarrhea Stool fecal leukocyte was positive indicating possible enterocolitis He was treated with Cipro and Flagyl. Patient is discharged with oral Cipro and Flagyl to continue treatment for enterocolitis Patient with a thyroid mass. TSH is within normal limits. He is informed to follow-up with his PCP or manager validation for further evaluation of the thyroid mass. Vital Signs/Physical Exam: Temp Pulse Resp BP Pulse Ox 97.8 F 59 16 117/49 L 97 01/21/22 12:40 01/21/22 12:40 01/21/22 12:40 01/21/22 12:40 01/21/22 08:00 General: Alert, In no apparent distress, Oriented x3 HEENT: Mucous membr. moist/pink Neck: JVD not distended Respiratory: Clear to auscultation bilaterally, Normal air movement Cardiovascular: No edema, Regular rate/rhythm, Normal S1 S2 Gastrointestinal: Normal bowel sounds, Soft and benign, Non-distended, No tenderness Musculoskeletal: No swelling Integumentary: No rashes Neurological: Normal strength at 5/5 x4 extr Laboratory Data at Discharge: WBC 6.80 K/uL (4.3-10.9) 01/20/22 05:14 Hgb 14.5 g/dL (13.6-17.9) 01/20/22 05:14 Hct 43.3 % (39.6-49.0) 01/20/22 05:14 Plt Count 182 K/uL (152-406) 01/20/22 05:14 PT 11.7 SECONDS (9.5-12.5) 01/20/22 19:55 INR 1.06 01/20/22 19:55 APTT 31.2 SECONDS (24.3-36.9) 01/20/22 19:55 Sodium 139 mmol/L (136-145) 01/21/22 02:56 Potassium 4.6 mmol/L (3.5-5.1) D 01/21/22 02:56 BUN 10 mg/dL (7-18) 01/21/22 02:56 Creatinine 0.84 mg/dL (0.55-1.3) 01/21/22 02:56 Glucose 92 mg/dL (74-106) 01/21/22 02:56 Phosphorus 2.5 mg/dL (2.5-4.9) 01/19/22 04:50 Magnesium 2.1 mg/dL (1.8-2.4) 01/19/22 04:50 Triglycerides 119 mg/dL (<150) 01/19/22 04:50 Cholesterol 159 mg/dL (<200) 01/19/22 04:50 HDL Cholesterol 32 mg/dL (40-60) L 01/19/22 04:50 Cholesterol/HDL Ratio 4.97 01/19/22 04:50 Home Medications: lisinopriL [Prinivil*] 20 mg PO DAILY 30 Days #30 tab 04/06/21 Aspirin Chewable [Aspirin Chewable*] 81 mg PO DAILY #30 tab.chew 01/21/22 Ciprofloxacin HCl [Cipro] 500 mg PO BID #10 tab 01/21/22 Ticagrelor [Brilinta*] 90 mg PO BID #60 tab 01/21/22 metroNIDAZOLE [Flagyl*] 500 mg PO TID #15 tab 01/21/22 New Medications: Aspirin Chewable [Aspirin Chewable*] 81 mg PO DAILY #30 tab.chew Ticagrelor [Brilinta*] 90 mg PO BID #60 tab Ciprofloxacin HCl [Cipro] 500 mg PO BID #10 tab metroNIDAZOLE [Flagyl*] 500 mg PO TID #15 tab Physician Discharge Instructions: You need to follow-up with your primary care physician or manager validation for further evaluation of your thyroid mass. Diet: AHA Activity: Ad shirley Followup: Dany Khan MD [ACTIVE - CAN ADMIT] - 1-2 Weeks NONE,NONE [Primary Care Provider] - Time spent managing pt's care (in minutes): 35
--- NOTE | 2022-01-21 14:14 | EKG ---
Test Date: 2022-01-18 Test Time: 13:38:21 [employer]work Assembler: BP MEASUREMENT RESULTS: Intervals: Rate: 52 MS: 170 QRSD: 64 QT: 436 QTc: 405 [place]: P: 90 MS: 170 QRS: 29 T: 51 INTERPRETIVE STATEMENTS: Sinus bradycardia Low voltage QRS Cannot rule out Anteroseptal infarct, age undetermined Abnormal ECG Compared to ECG 04/05/2021 15:57:12 Sinus rhythm no longer present Myocardial infarct finding still present Electronically Signed On 01-21-22 14:10:16 CDT by Alfredo Wheat
[2022-01-21 14:35] VITALS: O2SAT 97
[2022-01-21 15:35] VITALS: BP 165/73; TEMP 98.4
--- NOTE | 2022-01-22 00:12 | OP ---
Surgeon: Dany Khan MD Stitcher Around: Ms. Priscilla Hoyos. Admitted to Dr. Bauer on 01/19/2022 with non-STEMI. Brought to the Thermoforming Operator on 01/21/2022. Indication: Non-STEMI, CAD, status post LAD stent, known circumflex OM disease in the past. Description Of Procedure: Mr. Montague was brought to the Thermoforming Operator. He was prepped and draped in a ro utine sterile fashion. Given Versed and fentanyl for sedation. A 6-Tristanian sheath was introduced in the right common femoral artery successfully, using the Seldinger technique and 10 cc of xylocaine. Angiography there was normal. Angio-Seal was used to close the case. Padmaja catheter left and righ t were used to select the left main and right main respectively. He was found to have 20% to 30% lef t main stenosis, 30% to 40% mid LAD stenosis. After a long patent stent he had a 70% first septal di agonal ostium, 70% diagonal 2 stenosis in the ostium. He had a patent LAD proximal stent, patent RCA stent. Normal circumflex, it was dominant, there was a 50% ostial proximal OM1 ramus stenosis, norm al common femoral artery angiogram, Angio-Seal was used to close the case. 45 minutes sedation, cons cious. No complications. Estimated Blood Loss: 5 mL. Postoperative Diagnosis: Moderate to severe coronary artery disease. Plan: For medical therapy. The patient is intolerant to statin. We may have to consider Repatha on him. He will go home after 2 hours of bedrest. I will see him in the office in the next 2 weeks. MAGGI/GLEN Voice ID: [id number] Report ID: [id number]
--- NOTE | 2022-01-22 07:38 | ECHO ---
HEIGHT: 5 ft 7 in WEIGHT: 170 lb 0 oz DATE OF STUDY: 01/21/[address]: Matilda Santos 2-DIMENSIONAL: YES M.MODE: YES DOPPLER: YES COLOR FLOW: YES TDS: YES PORTABLE: YES DEFINITY: NO BUBBLE STUDY: NO DIAGNOSIS: ELEVATED TROPONIN CARDIAC HISTORY: CATHERIZATION: SURGERY: PROSTHETIC VALVE: PACEMAKER: MEASUREMENTS (cm) DIASTOLIC (NORMALS) SYSTOLIC (NORMALS) IVSd 1.3 (0.6-1.2) LA Diam 3.3 (1.9-4.0) LVEF 55% LVIDd 3.4 (3.5-5.7) LVIDs 2.6 (2.0-3.5) %FS 25% LVPWd 1.2 (0.6-1.2) Ao Diam 2.9 (2.0-3.7) 2 DIMENSIONAL ASSESSMENT: RIGHT ATRIUM: NORMAL LEFT ATRIUM: NORMAL RIGHT VENTRICLE: NORMAL LEFT VENTRICLE: NORMAL TRICUSPID VALVE: NORMAL MITRAL VALVE: PULMONIC VALVE: NORMAL AORTIC VALVE: NORMAL PERICARDIAL EFFUSION: NONE AORTIC ROOT: NORMAL LEFT VENTRICULAR WALL MOTION: MILD JULIANNA SEPTAL HYPOKINESIS. DOPPLER/COLOR FLOW: MILD MITRAL REGURGITATION. COMMENTS: NORMAL LEFT VENTRICULAR EJECTION FRACTION 50-55%. MILD JULIANNA SEPTAL HYPOKINESIS. MILD MITRAL REGURGITATION. TECHNOLOGIST: Lisbet IZQUIERDO
== END 2022-01-21 15:51 | disposition home or self-care (01) | DRG 282 ==
LOC: ER 12:55 → ERHOLD 21:03 → 4TH 01-19 15:28 → OBSVTOIN 01-19 19:21
PROVIDERS: ADMIT Internal Medicine; ATTEND Internal Medicine
PROC: 4A023N8 Measurement of Cardiac Sampling and Pressure, Bilateral, Percutaneous Approach (ICD-10-PCS; principal; 2022-01-21)
PROC: B2111ZZ Fluoroscopy of Multiple Coronary Arteries using Low Osmolar Contrast (ICD-10-PCS; 2022-01-21)
DX: I21.4 Non-ST elevation (NSTEMI) myocardial infarction (principal); I10 Essential (primary) hypertension; E07.9 Disorder of thyroid, unspecified; I25.10 Atherosclerotic heart disease of native coronary artery without angina pectoris; K21.9 Gastro-esophageal reflux disease without esophagitis; E78.5 Hyperlipidemia, unspecified; K52.9 Noninfective gastroenteritis and colitis, unspecified; E86.0 Dehydration; I25.2 Old myocardial infarction; R00.1 Bradycardia, unspecified; R63.4 Abnormal weight loss; R77.8 Other specified abnormalities of plasma proteins; Z95.5 Presence of coronary angioplasty implant and graft; Z88.8 Allergy status to other drugs, medicaments and biological substances; Z68.26 Body mass index [BMI] 26.0-26.9, adult; Z79.82 Long term (current) use of aspirin; Z79.899 Other long term (current) drug therapy; Z20.822 Contact with and (suspected) exposure to COVID-19
CPT/HCPCS: 36415; 71045; 71275; 80048; 80061; 81001; 81003; 82274; 82550; 82553; 83735; 83880; 84100; 84439; 84443; 84484; 85025; 85610; 85730; 87045; 87046; 87177; 87209; 87324; 89055; 93005; 93306; 93454; 96374; 97161; 97530; 99284; C1760; C1893; G0269; G0378; J0583; J1644; J1650; J2250; J3010; J7030; J7040; Q9966; Q9967; U0003

== ENCOUNTER 2022-10-22 12:22 | Inpatient (IN) | payer OTHER ==
[2022-10-22 12:45] LABS: Absolute Lymphocytes (CBC) 0.7 K/uL (0.7-4.9); Hematocrit 41.1 % (39.6-49.0); MPV 8.4 fL (7.6-11.3); RBC Red Blood Cell Count 4.57 M/uL (4.33-5.43)
[2022-10-22] MEDS ORDERED: ASPIRIN 81 MG CHEWABLE TABLET ONE (12:54)
[2022-10-22 13:05] LABS: Albumin 3.7 g/dL (3.4-5.0); Bilirubin Direct 0.1 mg/dL (0-0.2); Bilirubin Indirect, Calculated 0.3 mg/dL (0.2-0.8); Bilirubin Total 0.4 mg/dL (0.2-1.0); Magnesium 2.1 mg/dL (1.6-2.4); Potassium 3.6 mEq/L (3.5-5.1)
[2022-10-22 13:11] LABS: Troponin High Sensitivity 289.9 pg/mL (<58.9)
--- NOTE | 2022-10-22 14:39 | RAD REPORT ---
EXAM DESCRIPTION: RADChest Single View10/22/2022 2:07 pm CLINICAL HISTORY: CHEST PAIN COMPARISON: Chest Single View dated 01/18/2022; Chest Single View dated 04/03/2021; Chest Single View dated 09/28/2017; CHEST SINGLE VIEW dated 06/21/2012 TECHNIQUE: Portable AP view of the chest. FINDINGS: The lungs are clear. No pneumothorax or effusion. The cardiomediastinal contours are unre markable. IMPRESSION: No acute cardiopulmonary process.
--- NOTE | 2022-10-22 15:00 | ER ---
Nurse's Notes [facility] Name: Nghia Montague Age: 77 yrs Sex: Male : 1945 Arrival Date: 10/22/2022 Time: 12:22 Bed 18 Private MD: Diagnosis: Subsequent non-ST elevation (NSTEMI) myocardial infarction Presentation: 10/22 12:25 Chief complaint: EMS states: toned out to [place] for chest discomfort - upon arrival to ER ld1 pt denies chest pain. Coronavirus screen: At this time, the client does not indicate any symptoms associated with coronavirus-19. Ebola Screen: No symptoms or risks identified at this time. Initial Sepsis Screen: Does the patient meet any 2 criteria? No. Patient's initial sepsis screen is negative. Does the patient have a suspected source of infection? No. Patient's initial sepsis screen is negative. Risk Assessment: Do you want to hurt yourself or someone else? Patient reports no desire to harm self or others. Onset of symptoms was October 22, 2022. 12:25 Method Of Arrival: EMS: [facility] ld1 12:25 Acuity: TEZ 3 ld1 Triage Assessment: 12:26 General: Appears in no apparent distress. comfortable, Behavior is calm, cooperative, ld1 appropriate for age. Pain: Complains of pain in chest Pain does not radiate. Pain currently is 0 out of 10 on a pain scale. at worst was 4 out of 10 on a pain scale. Quality of pain is described as throbbing. EENT: No signs and/or symptoms were reported regarding the EENT system. Neuro: Level of Consciousness is awake, alert, obeys commands, Oriented to person, place, time, situation. Cardiovascular: Capillary refill < 3 seconds Patient's skin is warm and dry. Rhythm is sinus rhythm. Respiratory: Airway is patent Respiratory effort is even, unlabored. GI: Abdomen is flat, non-distended. : No signs and/or symptoms were reported regarding the genitourinary system. Derm: No signs and/or symptoms reported regarding the dermatologic system. Musculoskeletal: No signs and/or symptoms reported regarding the musculoskeletal system. Historical: - Allergies: 12:26 Simvastatin; ld1 - PMHx: 12:26 Myocardial infarction; Hypercholesterolemia; Diabetes mellitus; Hypertensive disorder; ld1 Congestive heart failure; COPD; CAD; Osteoarthritis; alcohol abuse; - Immunization history:: Adult Immunizations up to date, Client reports receiving the 2nd dose of the Covid vaccine. - Social history:: Smoking status: Patient/guardian denies using tobacco, the patient reports quitting approximately 20 years ago, Patient uses alcohol. - Family history:: not pertinent. Screenin:[address] [facility] ED Fall Risk Assessment (Adult) History of falling in the last 3 months, ld1 including since admission No falls in past 3 months (0 pts). Abuse screen: Denies threats or abuse. Denies injuries from another. Nutritional screening: No deficits noted. Tuberculosis screening: No symptoms or risk factors identified. Assessment: 12:29 Reassessment: See triage assessment. ld1 13:11 Reassessment: Dr. Santiago notified of elevated troponin 289.9. ss Vital Signs: 12:25 Pulse 72; Resp 18; Temp 98.2(O); Pulse Ox 98% on R/A; Weight 78 kg; Height 5 ft. 7 in. ld1 ; Pain 0/10; 12:26 BP 167 / 58; ld1 13:48 BP 130 / 44; Pulse 66; Resp 18; Pulse Ox 96% on R/A; ld1 14:37 BP 161 / 56; Pulse 84; Resp 18; Pulse Ox 100% on R/A; ld1 15:59 BP 166 / 67; Pulse 58; Resp 18; Pulse Ox 98% on R/A; ld1 17:12 BP 159 / 72; Pulse 61; Resp 18; Pulse Ox 100% on R/A; ld1 12:25 Body Mass Index 26.93 (78.00 kg, 170.18 cm) ld1 12:25 Pain Scale: Adult ld1 ED Course: 12:23 Patient arrived in ED. ds4 12:25 Sylvia Hernandez, SALTY is Primary Nurse. ld1 12:26 Triage completed. ld1 12:26 Arm band placed on right wrist. ld1 12:28 Hardik Santiago MD is Attending Physician. rt 12:29 Patient has correct armband on for positive identification. Placed in gown. Bed in low ld1 position. Call light in reach. Side rails up X2. clinical research monitor on. Pulse ox on. NIBP on. Door closed. Noise minimized. Warm blanket given. 12:29 No provider procedures requiring assistance completed. Maintain EMS IV. Dressing ld1 intact. Good blood return noted. Site clean \T\ dry. Gauge \T\ site: 20G RAC. Patient maintains SpO2 saturation greater than 95% on room air. 14:09 XRAY Chest (1 view) In Process Unspecified. EDMS 14:59 Roscoe Bernstein MD is Hospitalizing Provider. rt 16:09 Troponin High Sensitivity Sent. ld1 17:12 Patient admitted, IV remains in place. ld1 Administered Medications: 12:49 Drug: Aspirin PO Chewable Tablet 243 mg Route: PO; ld1 16:09 Drug: Enoxaparin Sub-Q 1 mg/kg Route: Sub-Q; Site: right upper arm; ld1 Medication: 12:29 VIS not applicable for this client. ld1 Outcome: 15:00 Decision to Hospitalize by Provider. rt 17:12 Admitted to Med/surg accompanied by tech, via wheelchair, room 212, Report called to ld1 SALTY Vera 17:12 Condition: stable 17:12 Instructed on the need for admit. 17:12 Patient left the ED. ld1 Signatures: Dispatcher [employer] EDJanice Carias, RN RN Leonel Mcmahon ds4 Sylvia Hernandez RN RN ld1 Hardik Santiago MD MD rt
--- NOTE | 2022-10-22 15:00 | EDPHYS ---
Physician Documentation [facility] Name: Nghia Montague Age: 77 yrs Sex: Male : 1945 Arrival Date: 10/22/2022 Time: 12:22 Bed 18 Private MD: ED Physician Hardik Santiago HPI: 10/22 18:27 This 77 yrs old Male presents to ER via EMS with complaints of Chest Pain. rt 18:27 Patient with history of coronary artery disease status post PCI x2 presents to the ED rt with exertional chest pressure, nonradiating with associated fatigue, shortness of breath starting about 1 hour prior to arrival. Chest pain has resolved upon arrival to the ED. He denies other acute complaints at this time, symptoms are moderate severity, no other aggravating or alleviating factors.. Historical: - Allergies: 12: Simvastatin; ld1 - PMHx: 12:26 Myocardial infarction; Hypercholesterolemia; Diabetes mellitus; Hypertensive disorder; ld1 Congestive heart failure; COPD; CAD; Osteoarthritis; alcohol abuse; - Immunization history:: Adult Immunizations up to date, Client reports receiving the 2nd dose of the Covid vaccine. - Social history:: Smoking status: Patient/guardian denies using tobacco, the patient reports quitting approximately 20 years ago, Patient uses alcohol. - Family history:: not pertinent. ROS: 18:27 Constitutional: Negative for fever, chills, and weight loss, Respiratory: Negative for rt shortness of breath, cough, wheezing, and pleuritic chest pain, Abdomen/GI: Negative for abdominal pain, nausea, vomiting, diarrhea, and constipation, MS/Extremity: Negative for injury and deformity, Skin: Negative for injury, rash, and discoloration, Neuro: Negative for headache, weakness, numbness, tingling, and seizure, Psych: Negative for depression, anxiety, suicide ideation, homicidal ideation, and hallucinations. 18:27 Cardiovascular: Positive for chest pain, Negative for edema. Exam: 18:27 Constitutional: This is a well developed, well nourished patient who is awake, alert, rt and in no acute distress. Head/Face: Normocephalic, atraumatic. Chest/axilla: Normal chest wall appearance and motion. Nontender with no deformity. No lesions are appreciated. Cardiovascular: Regular rate and rhythm with a normal S1 and S2. No gallops, murmurs, or rubs. Normal PMI, no JVD. No pulse deficits. Respiratory: Lungs have equal breath sounds bilaterally, clear to auscultation and percussion. No rales, rhonchi or wheezes noted. No increased work of breathing, no retractions or nasal flaring. Abdomen/GI: Soft, non-tender, with normal bowel sounds. No distension or tympany. No guarding or rebound. No evidence of tenderness throughout. Skin: Warm, dry with normal turgor. Normal color with no rashes, no lesions, and no evidence of cellulitis. MS/ Extremity: Pulses equal, no cyanosis. Neurovascular intact. Full, normal range of motion. Neuro: Awake and alert, GCS 15, oriented to person, place, time, and situation. Cranial nerves II-XII grossly intact. Motor strength 5/5 in all extremities. Sensory grossly intact. Cerebellar exam normal. Normal gait. Psych: Awake, alert, with orientation to person, place and time. Behavior, mood, and affect are within normal limits. 18:27 ECG was reviewed by the Attending Physician. Vital Signs: 12:25 Pulse 72; Resp 18; Temp 98.2(O); Pulse Ox 98% on R/A; Weight 78 kg; Height 5 ft. 7 in. ld1 ; Pain 0/10; 12:26 BP 167 / 58; ld1 13:48 BP 130 / 44; Pulse 66; Resp 18; Pulse Ox 96% on R/A; ld1 14:37 BP 161 / 56; Pulse 84; Resp 18; Pulse Ox 100% on R/A; ld1 15:59 BP 166 / 67; Pulse 58; Resp 18; Pulse Ox 98% on R/A; ld1 17:12 BP 159 / 72; Pulse 61; Resp 18; Pulse Ox 100% on R/A; ld1 12:25 Body Mass Index 26.93 (78.00 kg, 170.18 cm) ld1 12:25 Pain Scale: Adult ld1 MDM: 12:28 Patient medically screened. rt 18:27 Differential diagnosis: Acute coronary syndrome, NSTEMI, pneumonia, pneumothorax. HEART rt Score: History: Highly Suspicious (2), ECG: Normal (0), Age: > or = 65 years (2), Risk Factors: > or = 3 Risk factors for atherosclerotic disease (2), Troponin: > or = 3 x Normal Limit (2), Total Score = 8. The patient was given aspirin in the Emergency Department. Data reviewed: vital signs, lab test result(s), EKG, radiologic studies. Consideration of Admission/Observation Patient was admitted/placed on observation. Management of patient was discussed with the following: Hospitalist: Discussed with Dr. Bernstein, agrees to admit, request that Lovenox be ordered.. Electrical/Instrument Technician: Discussed with cardiology, comes admission for serial troponins. I considered the following discharge prescriptions or medication management in the emergency department Medications were administered in the Emergency Department. See MAR Patient already took 81 mg of aspirin prior to arrival, therefore, only 2043 mg tourniquet at this time. Independent interpretation of the following test(s) in the Emergency Department X-Ray: My interpretation is No consolidation seen on interpretation of the x-ray image. Test considered but Not performed: CT: Low suspicion for PE, CT angiogram not. Care significantly affected by the following chronic conditions: Coronary artery disease. Counseling: I had a detailed discussion with the patient and/or guardian regarding: the historical points, exam findings, and any diagnostic results supporting the discharge/admit diagnosis, lab results, radiology results, the need for further work-up and treatment in the hospital. Response to treatment: the patient's symptoms have markedly improved after treatment. 10/22 12:29 Order name: Basic Metabolic Panel; Complete Time: 13:12 rt 10/22 12:29 Order name: CBC with Diff; Complete Time: 13:12 rt 10/22 12:29 Order name: LFT's; Complete Time: 13:12 rt 10/22 12:29 Order name: Magnesium; Complete Time: 13:12 rt 10/22 12:29 Order name: NT PRO-BNP; Complete Time: 13:12 rt 10/22 12:29 Order name: Troponin HS; Complete Time: 13:12 rt 10/22 14:33 Order name: Troponin High Sensitivity; Complete Time: 16:42 ld1 10/22 12:29 Order name: XRAY Chest (1 view); Complete Time: 14:49 rt 10/22 12:29 Order name: EKG; Complete Time: 12:30 rt 10/22 15:05 Order name: CONS Physician Consult EDNC 10/22 12:29 Order name: Cardiac monitoring; Complete Time: 12:30 rt 10/22 12:29 Order name: EKG - Nurse/Tech; Complete Time: 12:44 rt 10/22 12:29 Order name: IV Saline Lock; Complete Time: 12:30 rt 10/22 12:29 Order name: Labs collected and sent; Complete Time: 12:44 rt 10/22 12:29 Order name: O2 Per Protocol; Complete Time: 12:30 rt 10/22 12:29 Order name: O2 Sat Monitoring; Complete Time: 12:30 rt EC: Rate is 65 beats/min. Rhythm is regular, Normal Sinus Rhythm with No ectopy. QRS [place] rt is Normal. MA interval is normal. QRS interval is normal. QT interval is normal. No Q waves. T waves are Normal. No ST changes noted. Interpreted by me. Administered Medications: 12:49 Drug: Aspirin PO Chewable Tablet 243 mg Route: PO; ld1 16:09 Drug: Enoxaparin Sub-Q 1 mg/kg Route: Sub-Q; Site: right upper arm; ld1 Disposition Summary: 10/22/22 15:00 Hospitalization Ordered Hospitalization Status: Observation rt Provider: Roscoe Bernstein rt Location: Telemetry/MedSurg (observation) rt Condition: Fair rt Problem: new rt Symptoms: have improved rt Bed/Room Type: Standard rt [facility](10/22/22 16:02) Diagnosis - Subsequent non-ST elevation (NSTEMI) myocardial infarction rt Forms: - Medication Reconciliation Form rt - SBAR form rt Signatures: Dispatcher [employer] EDRenae Zimmer Lauren, RN RN ld1 Hardik Santiago MD MD rt Corrections: (The following items were deleted from the chart) 16: 15:00 rt bd
[2022-10-22] MEDS ORDERED: ENOXAPARIN 80 MG/0.8 ML SQ ONE (15:14)
[2022-10-22 17:28] VITALS: BMI 26.9
[2022-10-22 19:17] LABS: Specific Gravity 1.012 (1.005-1.030); Urine Bilirubin NEGATIVE (Negative); Urine Blood Negative (Negative); Urine Clarity Clear (Clear); Urine Color Light-Yellow (Yellow); Urine Glucose NEGATIVE (Negative); Urine Protein NEGATIVE (Negative); Urine Urobilinogen Normal (Normal); Urine pH 6.5 (5.0-7.0)
--- NOTE | 2022-10-22 20:34 | EKG ---
Test Date: 2022-10-22 Test Time: 12:37:43 Supervisor Maintenance: Chiquita PRIETO MEASUREMENT RESULTS: Intervals: Rate: 65 MS: 194 QRSD: 84 QT: 414 QTc: 430 [place]: P: 42 MS: 194 QRS: 14 T: 64 INTERPRETIVE STATEMENTS: Normal sinus rhythm Low voltage QRS Borderline ECG Compared to ECG 01/18/2022 13:38:21 Sinus bradycardia no longer present Myocardial infarct finding no longer present Electronically Signed On 10-22-22 20:32:34 CDT by Dany Khan
[2022-10-22] MEDS: TICAGRELOR 90 MG TABLET PO SCH (21:36)
[2022-10-22] MEDS: METOPROLOL XL 25 MG TAB PO SCH (21:36)
[2022-10-22] MEDS: ENOXAPARIN 80 MG/0.8 ML SQ SCH (21:36)
--- NOTE | 2022-10-23 05:04 | HP ---
Date of Admission: 10/22/2022 Chief Complaint: Chest pain, shortness of breath. History Of Present Illness: This is a 77-year-old pleasant male patient, who goes to [facility] here in town for his medical care, came into emergency room with above-mentioned problems. The patient sa ys that, lately he stopped taking his blood pressure medication, which is lisinopril, as taking lisin opril on a daily basis dropped his blood pressure too low, so he decided to stop taking it. This mor sully, he woke up, not feeling good, and he checked his blood pressure. His systolic blood pressure w as around 200 and he took his lisinopril. Subsequently, his blood pressure came down to 180. He was having some vague chest discomfort associated with some shortness of breath, [facility]. Denies any nausea, vomiting, diaphoresis. After he was evaluated in the ER, he was adm itted to the hospital with non-STEMI. When I saw him this evening, he was asymptomatic. Allergies: SIMVASTATIN, CAUSING MYALGIA. Medications: At home he takes; lisinopril 20 mg daily, Brilinta 90 mg 2 times a day, aspirin 81 mg d aily. Review of Systems: Cardiovascular: As mentioned above. All other systems reviewed and negative. Social History: Prior history of smoking, alcohol use, but he quit long time ago. Past Medical History: Hypertension, hyperlipidemia, coronary artery disease. The patient had a card iac cath done in December 2021 at our hospital, showed patent stent in proximal RCA, patent stent in the proximal LAD with about 50% stenosis of OM1 and diagonal D2 artery. Medical management was silvia eric at that time. Past Surgical History: Coronary artery angioplasty with stent placement. Family History: Mother had diabetes and breast cancer. Physical Examination: Vital Signs: This evening temperature 97.1, pulse 69, respiratory rate 18, blood pressure 152/72, ox ygen saturation 96%. Height 5 feet 7 inches. Weight 172 pounds. General: Awake, alert, oriented, not in distress. HEENT: Head atraumatic, normocephalic. Conjunctivae nonerythematous. Sclerae white. Mouth, no thr ush or edema noted. Ears/Nose, no mass, lesion, discharge noted. Neck: Supple. No JVD, lymph nodes, bruit, thyromegaly noted. Lungs: Bilateral good equal air entry. Clear to auscultation. No rhonchi. No rales. Heart: Normal heart sounds, no murmur or gallop. Abdomen: Soft, bowel sounds normal. No guarding, rigidity, tenderness, mass, hepatosplenomegaly, dis tention, or bruit noted. Extremities: No leg edema. No calf tenderness. Skin: No rash, ulcer, cellulitis. Lymphatics: No lymph node enlargement in neck, supraclavicular, infraclavicular region. Neuro: No focal neurological deficit. Chest: Unremarkable. External Genitalia: Deferred. Rectal: Deferred. Laboratory Data: White count 5.2, hemoglobin 13.6, platelets . Sodium 134, potassium 3.6, chloride 107, bicarb 21, BUN 12, creatinine 1.13, glucose 118. Liver function tests unremarkable. Initial troponin 289, second troponin 281, third troponin 284. Urinalysis normal. EKG; no acute ST-T changes. Chest x-ray, no acute cardiopulmonary changes. Impression: 1.Non-ST elevation myocardial infarction. 2.Coronary artery disease. 3.Hypertension. 4.Hyperlipidemia. Plan: Admit patient to hospital for further evaluation and management of this problem. Patient is a ppropriate for inpatient and is expected to spend 2 midnights in the hospital. He was admitted to [facility] under my service as I was providing coverage for hospitalist service. I have advised him that upon discharge from the hospital, he should follow up with his primary care provider at [facility] within a week or so and also he should follow up with therapy manager on a regular basis. Once SHELIA dalton contacted me, Lovenox was ordered 1 mg/kg subcutaneous injection every 12 hours. We will cont inue his anti-platelet therapy. The patient did receive aspirin today in the emergency room. He had side effect to simvastatin and after that, he reports that he has not tried any other statin therapy and he is willing to take it. I have advised him that if he has any side effect, then he should dis continue statin therapy and communicate with his physician for consideration of different medical man agement. We will go ahead and start him on atorvastatin 40 mg daily starting tomorrow. Get fasting lipid profile tomorrow morning, as his last fasting lipid profile done at our hospital was during [facility] admission, December 2021, and results reviewed. I have advised him that we should try lo wer dose of lisinopril and metoprolol as per order. He is willing to try that. Consult Cardiology. We will go ahead and order [place] [employer] diet tonight, keep him n.p.o. after midnight, and I will see him in the morning for followup. JOSELITO/MODL Voice ID: [id number]
[2022-10-23] MEDS: lisinopriL 5 MG TAB PO SCH (10:34)
[2022-10-23] MEDS: ATORVASTATIN 40 MG TAB PO SCH (10:34)
[2022-10-23] MEDS: TICAGRELOR 90 MG TABLET PO SCH ×2 (14:16→20:58)
[2022-10-23] MEDS: ENOXAPARIN 80 MG/0.8 ML SQ SCH ×2 (14:16→20:58)
[2022-10-23 16:28] LABS: C.diff Antigen/Toxin Ag neg : Tox neg (NEG : NEG)
[2022-10-23] MEDS ORDERED: LOPERAMIDE HCL 2 MG CAPSULE PO PRN (17:51)
--- NOTE | 2022-10-23 17:54 | PN ---
Date of Progress Note: 10/23/2022 Subjective: The patient was seen this morning for followup. No new complaints or problems reported by the patient. No chest pain. No shortness of breath. No nausea. Overall, his condition has joe ined stable overnight. Objective: Vital Signs: Reviewed. HEENT: Unremarkable. Lungs: Clear to auscultation. Heart: Sounds normal. Abdomen: Soft. Bowel sounds normal. No guarding, rigidity, tenderness, distention. Extremities: No leg edema. Laboratory Data: Last troponin last night was 268 and that is the lowest value for this admission. This morning; his total cholesterol was 173, triglycerides 147, LDL 111, HDL 33. Impression: 1.Non-ST segment elevation myocardial infarction. 2.Coronary artery disease. 3.Hypertension. 4.Hyperlipidemia. Plan: We will go ahead, continue current anti-platelet therapy, continue current Lovenox, continue l isinopril and metoprolol per order. Follow up with sales ambassador for further management of non-STEMI. Details and plan of treatment discussed with the patient. The patient will be started on atorvasta tin 40 mg daily today per order. JOSELITO/MODL Voice ID: [id number] Report ID: [id number]
--- NOTE | 2022-10-23 18:52 | CON ---
Date of Consultation: 10/23/2022 Reason For Consultation: Elevated troponin, questionable non-ST elevation myocardial infarction. History Of Present Illness: A 77-year-old male with history of moderate coronary artery disease know n from his left coronary angiogram was done last year by Dr. Khan. He goes to the [facility] and w as sent to the emergency room because he was having chest pain and shortness of breath. Chest pain i s on and off, related to exertion and shortness of breath as well. Denies having nausea, vomiting, d iarrhea, or diaphoresis. Past Medical History: Coronary artery disease, hypertension, dyslipidemia. Medications: Refer to reconciliation sheet for detailed list. Allergies: SIMVASTATIN. Family History: No premature coronary artery disease or cancer. Social History: Does not smoke or drink or use any drugs at the present. Physical Examination: Vital Signs: Reviewed. Head and Neck: Pupils are equal, reactive to light. Intact eye movements. No JVD. No cervical lym phadenopathy. Neck is supple. Thyroid is not enlarged. Lungs: Clear to auscultation bilaterally. No rhonchi, wheezing, or crackles. No accessory muscle u se. Heart: Regular rate and rhythm. No extra sounds. Abdomen: Soft, nontender. Bowel sounds positive. No organomegaly. No masses or hernia. No rigidi ty or rebound. Extremities: No edema, clubbing, or cyanosis. Intact pulses. Skin: No rash. Neurologic: Alert, awake, oriented x3. No acute focal deficits appreciated. Investigations: BUN 12, creatinine 1.13. Troponin peaked at 289 and trending down. Assessment And Recommendations: 1.Chest pain with elevated troponin. He has moderate coronary artery disease. This could be non-ST segment elevation myocardial infarction. Obtain an exercise nuclear stress test tomorrow and based on the stress test results, we will plan the need for coronary angiogram. In the interim, continue w ith Brilinta and metoprolol. 2.Dyslipidemia. Continue statin. 3.Hypertension. Blood pressure is controlled. Continue with current management. Agree to continue with Lovenox at the present time pending the stress test as above. SR/MODL Voice ID: [id number] Report ID: [id number]
[2022-10-23] MEDS: METOPROLOL XL 25 MG TAB PO SCH (20:59)
[2022-10-24 01:21] VITALS: O2SAT 97
[2022-10-24 05:18] LABS: Absolute Lymphocytes (CBC) 1.2 K/uL (0.7-4.9); Hematocrit 44.6 % (39.6-49.0); Lymphocytes % 14.7 % (15.3-44.8); MCV 90.1 fL (80-100); MPV 8.7 fL (7.6-11.3); RBC Red Blood Cell Count 4.95 M/uL (4.33-5.43)
[2022-10-24 05:51] LABS: Magnesium 2.3 mg/dL (1.6-2.4); Potassium 4.2 mEq/L (3.5-5.1)
[2022-10-24] MEDS ORDERED: REGADENOSON 0.4 MG/5 ML SYR IV ONE (07:41)
[2022-10-24] MEDS: lisinopriL 5 MG TAB PO SCH (08:11)
[2022-10-24] MEDS: TICAGRELOR 90 MG TABLET PO SCH (08:11)
[2022-10-24] MEDS: ENOXAPARIN 80 MG/0.8 ML SQ SCH (10:47)
[2022-10-24] MEDS: ATORVASTATIN 40 MG TAB PO SCH (10:48)
--- NOTE | 2022-10-24 11:05 | RAD REPORT ---
EXAM DESCRIPTION: [facility] - Rest Stress Cardiac Imaging - 10/24/2022 10:47 am CLINICAL HISTORY: elevated troponin Chest pain. COMPARISON: <Comparisons> TECHNIQUE: The patient was administered approximately 10mCi of Tc 99m Sestamibi prior to resting SPE CT imaging of the heart. The patient was then administered approximately 30 mCi of Tc 99m Sestamibi f ollowing exercise or pharmacologic stress. Multiplanar SPECT images were reviewed. FINDINGS: An area of diminished density is seen involving the LV apex. 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 No stress- induced ischemia defect seen. The end diastolic volume is 89 ml, the end systolic volume is 47 ml, and the ejection fraction is 47 %. 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 No stress-induced ischemia seen.
[2022-10-24 12:15] VITALS: BP 165/85; TEMP 98.1
--- NOTE | 2022-10-24 19:48 | PN ---
Date of Progress Note: 10/24/2022 Subjective: Seen by bedside. Clinically doing well. No new complaints. Stress test was negative f or ischemia. Review of Systems: No chest pain, shortness of breath, orthopnea, cough. No nausea, vomiting, diarrhea. All other syst ems reviewed and they were negative. Physical Examination: Vital Signs: Reviewed. Head and Neck: Pupils are equal, reactive to light. Intact eye movements. No JVD. No cervical lym phadenopathy. Neck is supple. Thyroid is not enlarged. Lungs: Clear to auscultation bilaterally. No rhonchi, wheezing, or crackles. No accessory muscle u se. Heart: Regular rate and rhythm. No extra sounds. Abdomen: Soft, nontender. Bowel sounds positive. No organomegaly. No masses or hernia. No rigidi ty or rebound. Extremities: No clubbing or cyanosis. Intact pulses. Skin: No rash. Neurologic: Alert, awake, oriented x3. No acute focal deficits appreciated. Investigations: Troponin peaked at 281 to 184. BUN is 15, creatinine 1.03. Stress test is negative for reversible ischemia. Hemoglobin 14.8. Assessment And Recommendations: 1.Chest pain with positive troponin. Stress test is negative. This is not cardiac likely. He is k nown to have moderate coronary artery disease, but I do not think he needs any invasive testing at th is point. Likely, his troponin chest pain due to significant uncontrolled hypertension. Recommend tight control of his blood pressure, baby aspirin and statin and metoprolol. Adjust metopr olol to get the heart rate close to 60 or below. 2.Dyslipidemia. Continue statin. 3.Hypertension. Blood pressure is still elevated. Recommend tighter blood pressure control before discharge. SR/MODL Voice ID: [id number] Report ID: [id number]
--- NOTE | 2022-10-24 23:34 | DS ---
Date of Discharge: 10/24/2022 Disposition: Discharged to go home. Physical Examination: HEENT: Unremarkable. Lungs: Clear to auscultation. Heart: Sounds normal. Abdomen: Soft. Bowel sounds normal. No guarding, rigidity, tenderness, distention. Extremities: No leg edema. Laboratory Data: Upon admission white count 5.2, hemoglobin 13.6, platelets 209. Today white count 8.1, hemoglobin 14.8, platelets 250. Chemistry from today sodium 137, potassium 4.2, chloride 111, b icarb 23, BUN 15, creatinine 1.03, glucose 119. Lipid profile from yesterday total cholesterol 173, triglyceride 147, LDL 111, and HDL 33. Upon admission sodium 134, potassium 3.6, chloride 107, bicar b 21, BUN 12, creatinine 1.13, glucose 118. Initial troponin 289, second troponin 281, third troponi n 284, fourth troponin 273, and fifth troponin 268. Hospital Course: A 77-year-old male patient who goes to [facility] for his primary care, came into em ergency room with chest pain and shortness of breath. Please see dictated H and P for more informati on. The patient was evaluated in the emergency room and was admitted to the hospital under my servic e as I was providing coverage for hospitalist team. The patient was admitted to the hospital with no n-STEMI. Cardiology consultation was requested from Dr. Wheat. He takes Brilinta at home, which wa s continued. He was also started on Lovenox. We lisinopril 5 mg in the morning and metop rolol 25 mg at nighttime and atorvastatin 40 mg daily. He tolerated all these medications very well. Dr. Wheat recommended for him to get a nuclear stress test, which was done today and it did not sh ow any stress-induced ischemia and after that Cardiology cleared him for discharge and the patient wa s medically stable for discharge with the following discharge medication instructions. Final Diagnoses: 1.Non-ST elevation myocardial infarction. 2.Coronary artery disease. 3.Hypertension. 4.Hyperlipidemia. 5.Chronic aspirin and anti-platelet therapy. Discharge Medications And Instructions: 1.Continue Brilinta 90 mg, take one tablet by mouth 2 times a day. 2.Continue aspirin, take one tablet by mouth daily. 3.Stop lisinopril 20 mg dose. 4.Start lisinopril 5 mg, take one tablet by mouth daily in morning. 5.Start metoprolol succinate 25 mg, take one tablet by mouth daily at bedtime. 6.Start atorvastatin 40 mg one tablet by mouth daily at bedtime. 7.Follow up with your primary care provider at [facility] in 1 to 2 weeks. 8.Follow up with plane tableman, Dr. Wheat in 2 weeks. 9.Get blood test which is liver function tests done with your primary care provider in 1 month and t hen on regular basis for monitoring of side effect of cholesterol medication and all these details we re discussed with the patient today personally by me when I saw him in the morning. JOSELITO/MODL Voice ID: [id number] Report ID: [id number]
--- NOTE | 2022-10-25 07:46 | TREADPHA ---
DX: ELEVATED TROPONIN Date of Study: 10/24/2022 Ht: 5' 7 " Wt: 172 lb 0 oz Consulting Physician: UDAY MEDICATIONS: LIPITOR, LOVENOX, PRINIVIL, IMODIUM, TOPROL XL, BRILINTA HISTORY: 77 YEAR OLD MALE WITH COMPLAINTS OF HYPERTENSION. PATIENT HAS HISTORY OF HYPERTENSION, ALCOHOL USE, SMOKER, HYPERLIPIDEMIA, CORONARY ARTERY DISEASE WITH STENTS. PATIENT STATES ALLERGY TO SIMVASTATIN. PHYSICIAL EXAMINATION: RESTING B.P.: 167/76 RESTING H.R.: 64 RESTING EKG: NORMAL SINUS RHYTHM, Q IN ANTERIOR LEADS PROTOCOL: PHARMACOLOGIC EXERCISE TIME: 3:30 B.P. AT PEAK STRESS: 200/66 IMPRESSION: LEXISCAN INJECTED. CARDIOLITE INJECTED - SEE NUCLEAR MEDICINE REPORT. PATIENT DENIES CHEST PAIN. NO SUPRAVENTRICULAR TACHCARDIA, VENTRICULAR TACHCARDIA, PREMATURE ATRIAL COMPLEXES NOTED. OCCASIONAL PREMATURE VENTRICULAR COMPLEXES THROUGHOUT. PATIENT STATES SHORTNESS OF BREATH AND LIGHTHEADEDNESS. NO ELECTROCARDIOGRAM CHANGES OF ISCHEMIA WITH LEXISCAN.
== END 2022-10-24 13:58 | disposition home or self-care (01) | DRG 282 ==
LOC: ER 12:22 → ERHOLD 15:02 → INTOOBSV 15:02 → OBSVTOIN 15:02 → 2ND 16:20 → OBSVTOIN 19:05
PROVIDERS: ADMIT Internal Medicine; ATTEND Internal Medicine
DX: I21.4 Non-ST elevation (NSTEMI) myocardial infarction (principal); J44.9 Chronic obstructive pulmonary disease, unspecified; E78.00 Pure hypercholesterolemia, unspecified; E11.9 Type 2 diabetes mellitus without complications; I10 Essential (primary) hypertension; M19.90 Unspecified osteoarthritis, unspecified site; I25.10 Atherosclerotic heart disease of native coronary artery without angina pectoris; I25.2 Old myocardial infarction; Z79.82 Long term (current) use of aspirin; Z98.61 Coronary angioplasty status; Z87.891 Personal history of nicotine dependence; Z79.899 Other long term (current) drug therapy
CPT/HCPCS: 36415; 71045; 78452; 80048; 80061; 80076; 81003; 83735; 83880; 84484; 85025; 87324; 93005; 93017; 96372; 99285; A9500; G0378; J2785

== ENCOUNTER 2024-02-25 13:00 | Day surgery (SDC) | payer OTHER ==
--- NOTE | 2024-02-20 13:20 | RAD REPORT ---
Procedure: Chest Pa And Lat (2 Views) HISTORY: Preop for cardiac catheterization. Hypertension. COMPARISON: 2022 FINDINGS: The lungs appear clear of acute infiltrate. No significant pleural effusion noted. The heart is normal size. IMPRESSION: No acute abnormality is displayed.
[2024-02-20 13:49] LABS: Absolute Eosinophils 0.2 K/uL (0-0.5); Absolute Lymphocytes (CBC) 1.1 K/uL (0.7-4.9); Absolute Monocytes 0.7 K/uL (0.1-1.3); Absolute Neutrophil 3.8 K/uL (1.8-8.0); Basophils % 0.6 % (0-1.3); Eosinophils % 2.9 % (0-4.4); Hematocrit 38.6 % (39.6-49.0); Hemoglobin 12.6 g/dL (13.6-17.9); Lymphocytes % 18.5 % (15.3-44.8); MCHC 32.7 g/dL (32.0-36.0); MCV 91.5 fL (80-100); MPV 9.2 fL (7.6-11.3); Monocytes % 12.6 % (3.3-12.3); Neutrophils % 65.4 % (41.7-73.7); Platelets 221 thou/uL (152-406); RBC Red Blood Cell Count 4.22 M/uL (4.33-5.43)
[2024-02-20 13:55] LABS: PT Prothrombin Time 10.9 SECONDS (9.4-12.5); PTT, Activated Partial Thromb 33.9 SECONDS (24.3-36.9); Protime INR 0.97
[2024-02-20 14:09] LABS: Anion Gap 11.3 mEq/L (5.0-15.0); Potassium 4.3 mEq/L (3.5-5.1)
--- NOTE | 2024-02-23 12:38 | EKG ---
Test Date: 2024-02-20 Test Time: 13:01:34 Quality Process Auditor: DAVID MEASUREMENT RESULTS: Intervals: Rate: 70 WI: 188 QRSD: 82 QT: 396 QTc: 427 [place]: P: 61 WI: 188 QRS: 19 T: 69 INTERPRETIVE STATEMENTS: Normal sinus rhythm Low voltage QRS Septal infarct, age undetermined Abnormal ECG Compared to ECG 10/22/2022 12:37:43 Myocardial infarct finding now present Electronically Signed On 02-23-24 12:37:07 CDT by Olvin Pedro
[2024-02-25] MEDS ORDERED: NA CHLORIDE 0.9% 500 ML ONE (13:06)
[2024-02-25 13:33] VITALS: TEMP 97.8
[2024-02-25] MEDS ORDERED: HEPA 1000U/500MLS 2,000 UNIT/1,000 ML BAG IV ONE (14:40)
[2024-02-25] MEDS ORDERED: VERAPAMIL HCL 10 MG/4 ML VIAL IV ONE (14:40)
[2024-02-25] MEDS ORDERED: MIDAZOLAM HCL 2 MG/2 ML INJ ONE (14:40)
[2024-02-25] MEDS ORDERED: HEPARIN 10,000 UNIT/10 ML VIAL IV ONE (14:40)
[2024-02-25] MEDS ORDERED: LIDOCAINE 1% 20 ML MDV ONE (14:40)
[2024-02-25] MEDS ORDERED: TICAGRELOR 90 MG TABLET PO ONE (14:41)
[2024-02-25] MEDS ORDERED: CLOPIDOGREL 75 MG TABLET ONE (14:41)
[2024-02-25] MEDS ORDERED: FENTANYL CITR 100 MCG/2 ML ONE (14:41)
[2024-02-25] MEDS ORDERED: ASPIRIN 325 MG TAB ONE (14:41)
[2024-02-25] MEDS ORDERED: ATROPINE SULF 1 MG/10 ML SYR IV ONE (14:41)
[2024-02-25] MEDS ORDERED: HEPARIN 5000 UNIT/ML 1 ML VIAL ONE (14:41)
[2024-02-25 17:50] VITALS: BP 117/45; O2SAT 97
--- NOTE | 2024-02-26 01:52 | OP ---
Date of Procedure: 02/25/2024 Surgeon: AMBER FRYE Procedures Performed: 1.Selective coronary angiogram. 2.Left heart catheterization. Indication: Chest pain with abnormal stress test. Access: Right radial artery 6-Maltese, closed with TR band. Complications: None. Bleeding: Less than 50 mL. Anesthesia: Total sedation time is 45 minutes. Used fentanyl and Versed. Complications: None. Bleeding: Less than 50 mL. Description Of Procedure: After risks, benefits, and alternatives were explained, patient agreed to procedure and signed informed consent. The patient was brought into cardiac catheterization laborato , prepped and draped in sterile fashion. Then, I accessed right radial artery using pediatric micr opuncture kit, placed 6-Maltese Slender sheath. Took 5-Maltese [place] 4 catheter over J-wire into the a ortic root, across the aortic valve, measured the LVEDP. Pullback did not record any gradient. Then , engaged the left main and took standard views. In the RCA, took standard views and then removed th e catheter and the sheath and placed TR band with good hemostasis. Findings: 1.Left main is normal. 2.LAD: Proximal segment is normal. Mid segment has very long stent with 10% to 20% diffuse ISR. D iagonal 2 branch is jailed, but with MICHAELA-3 flow. Diagonal branches with luminal irregularities. Re st of LAD is normal. 3.Left circumflex: Small and normal with luminal irregularities. 4.RCA: Large and dominant. Proximal RCA stent is patent and then mid to distal RCA, there is focal long 40% stenosis. PDA and PLB are normal. 5.Normal LVEDP at 10 mmHg. Conclusion: 1.Widely patent RCA and LAD stents with mild ISR of the LAD stent. 2.Moderate coronary artery disease elsewhere. Plan: Continue medical management. SR/MODL Voice ID: [id number] Report ID: [id number]
== END 2024-02-25 17:53 | disposition home or self-care (01) ==
LOC: CCL 13:00
PROVIDERS: ATTEND Internal Medicine
DX: I25.10 Atherosclerotic heart disease of native coronary artery without angina pectoris (principal); T82.855A Stenosis of coronary artery stent, initial encounter; I65.23 Occlusion and stenosis of bilateral carotid arteries; I10 Essential (primary) hypertension; E78.2 Mixed hyperlipidemia; Z79.82 Long term (current) use of aspirin; Z79.899 Other long term (current) drug therapy; Z88.8 Allergy status to other drugs, medicaments and biological substances
CPT/HCPCS: 93005; 85025; 80048; 36415; 85610; 85730; 71046; 93458; 76937; C1893; Q9966; J1644; J2003; J2250; J3010; J7040; 99152; 99153; J0461